=== PATIENT | female | born 1985 | race Caucasian/White ===

== ENCOUNTER 2021-05-03 15:57 | Inpatient (IN) | payer MEDICAID, SELFPAY ==
[2021-05-03] VITALS (8 sets, daily range): BP systolic 101–137; BP diastolic 62–89; PULSE 68–120; RESP 12–18; TEMP 36.7–37.3; O2SAT 93–99; BMI 29.3
--- NOTE | 2021-05-03 16:01 | PCS.PANDOC ---
PANDEMIC DOCUMENTATION INITIATED: Date: 04/14/2021 Time: 190
--- NOTE | 2021-05-03 16:22 | PCM.HP.STD ---
Documented by User: Alessandro NEGRON 05/03/21 16:41 HPI - General General Date of Admission: 05/03/21 HPI Narrative TRENTON BESS is a 36-year-old female who is a direct admission from [facility] emergency department for evaluation and management of left-sided infected kidney stone. Patient reports that this morning with excruciating left-sided flank pain. Patient reports that the pain was excruciating consistent and she would rated about a 10. Patient denies any alleviating or aggravating factors. Patient does endorse some nausea and vomiting since receiving morphine, however reports the symptoms were not present prior to that. Patient denies any other symptoms to include fever, chills, hematuria or pain with urination. Patient denies any prior history of kidney stone or kidney problems. No diagnostic data currently available as information is in route from initial care facility. [facility] Medical History Anxiety Cholecystectomy planned GERD (gastroesophageal reflux disease) Hypothyroidism Home Medications cyanocobalamin (vitamin B-12) 1,000 mcg PO DAILY 05/03/21 [History Last Taken 05/02/21] levothyroxine 175 mcg PO DAILY 05/03/21 [History Last Taken 05/02/21] pantoprazole 40 mg PO DAILY 05/03/21 [History Last Taken 05/02/21] paroxetine HCl 40 mg PO DAILY 05/03/21 [History Last Taken 05/02/21] Allergy/AdvReac Type Severity Reaction Status Date / Time Sulfa (Sulfonamide Allergy Hives Verified 05/03/21 16:50 Antibiotics) Family History Mother Hypothyroidism Hypertension Surgical History History of cholecystectomy History of pancreatic surgery Previous back surgery Previous section Social History (Updated 05/03/21 @ 16:31 by Alessandro NEGRON) household members: spouse and children housing: house Smoking Status: Current every day smoker tobacco type: cigarettes Smoking packs per day: 0.5 Smoking cigarettes per day: 10.0 Years smoked: 10 Smoking pack-years: 5.00 Tobacco: How many years used: 10 quit status: considering quitting alcohol intake: never substance use type: does not use do you feel safe at home: Yes ROS Constitutional Constitutional: Reports malaise and weakness; Denies anorexia, change in weight, chills, fatigue, fever(s), night sweats or other Eyes Eyes: Denies blurry vision, change in eye color, change in vision, discharge from eye(s), double vision, erythema, eye pain, loss of vision or other ENT HEENT: Denies abnormal hearing, dysphagia, ear pain, epistaxis, headache(s), hearing loss, nasal congestion, nasal discharge, post nasal drip, sinus pressure, sore throat or other Cardiovascular Cardiovascular: Denies chest pain, claudication, dyspnea on exertion, edema, lightheadedness, orthopnea, palpitations, paroxysmal nocturnal dyspnea, rapid heart rate, syncope or other Respiratory/Chest Respiratory/Chest: Denies cough, dyspnea, excessive phlegm production, hemoptysis, productive cough, shortness of breath at rest, shortness of breath with exertion, wheezing or other Gastrointestinal Gastrointestinal: Denies abdominal pain, coffee ground emesis, constipation, diarrhea, dyspepsia, hematemesis, hematochezia, loose stools, melena, nausea, vomiting or other Genitourinary Genitourinary: Denies burning urination, difficulty urinating, dysuria, hematuria, nocturia, urinary frequency, urinary hesitancy, urinary incontinence, urinary urgency or other Musculoskeletal Musculoskeletal: Denies arthralgias, back pain, joint pain, joint stiffness, joint swelling, myalgias, neck pain or other Neurologic Neurologic: Denies abnormal gait, abnormal speech, confusion, disequilibrium, dizziness, focal weakness, headache(s), numbness, paresthesias, seizure-like activity, seizures, syncope, tingling, tremor(s) or other Psychiatric Psychiatric: Denies anxiety, depression, homicidal ideation, suicidal ideation or other Endocrine Endocrinology: Denies change in body appearance, cold intolerance, excessive sweating, heat intolerance, polydipsia, polyuria or other Hematologic/Lymphatic Hematologic/Lymphatic: Denies anemia, easy bleeding, easy bruising, lymphadenopathy or other Allergic/Immunologic Allergic/Immunologic: Denies rhinitis, hives, eczemia, asthma or other Physical Exam Const alert and oriented x3 General Appearance: cooperative HEENT normocephalic, head/scalp atraumatic and hearing grossly normal bilaterally Eyes PERRL, EOMs intact bilaterally and conjunctivae normal Neck no lymphadenopathy, supple and no JVD Resp normal respiratory effort, no retractions, no use of accessory muscles and clear to auscultation bilaterally Cardio regular rate, regular rhythm, no murmurs and no JVD GI normal to inspection, nondistended, normoactive bowel sounds and soft to palpation Palpation: tender LLQ Extremity normal to inspection, full ROM and no clubbing, cyanosis or edema Skin no rashes or lesions noted, no wounds, skin turgor normal and no jaundice Neuro CN's II-XII intact bilaterally Psych affect normal Results Lab / Micro Data Result Diagrams: 05/04/21 12:30 05/04/21 05:35 Assessment & Plan Assessment/Plan (1) Left nephrolithiasis: PLAN: Patient is a 36-year-old female who is a direct admission from [facility] department for evaluation and management of infected left kidney stone. 1) infected left kidney stone Patient reports a 1 day history of left lower quadrant and left-sided flank pain. Patient was initially evaluated at [facility] emergency department, and subsequently transferred to [facility] for further urological evaluation and management. Associated diagnostic data not currently available from initial emergency department. Plan; admit to PCU for cardiac monitoring, urology consult ordered, Tylenol as needed, morphine as needed, Zofran as needed, CBC and BMP in a.m., UA ordered. CODE STATUS: Full code Vaccination status: Patient not currently vaccinated for COVID-19. Denies any sick contacts or symptoms associated with viral infection. DVT prophylaxis - low risk, not indicated Patient seen by Alessandro Gil PA-C, under the supervision of Dr. Ellsworth. Documented by User: Dr. Vince Ellsworth MD 05/04/21 13:23 HPI - General General Date of Admission: 05/03/21 [facility] Medical History Anxiety Cholecystectomy planned GERD (gastroesophageal reflux disease) Hypothyroidism Home Medications cyanocobalamin (vitamin B-12) 1,000 mcg PO DAILY 05/03/21 [History Last Taken 05/02/21] levothyroxine 175 mcg PO DAILY 05/03/21 [History Last Taken 05/02/21] pantoprazole 40 mg PO DAILY 05/03/21 [History Last Taken 05/02/21] paroxetine HCl 40 mg PO DAILY 05/03/21 [History Last Taken 05/02/21] Allergy/AdvReac Type Severity Reaction Status Date / Time Sulfa (Sulfonamide Allergy Hives Verified 05/03/21 16:50 Antibiotics) Family History Mother Hypothyroidism Hypertension Surgical History History of cholecystectomy History of pancreatic surgery Previous back surgery Previous section Social History (Updated 05/03/21 @ 16:31 by Alessandro NEGRON) household members: spouse and children housing: house Smoking Status: Current every day smoker tobacco type: cigarettes Smoking packs per day: 0.5 Smoking cigarettes per day: 10.0 Years smoked: 10 Smoking pack-years: 5.00 Tobacco: How many years used: 10 quit status: considering quitting alcohol intake: never substance use type: does not use do you feel safe at home: Yes Results Lab / Micro Data Result Diagrams: 05/04/21 12:30 05/04/21 05:35 Charges/Coding Addendum Addendum: Dr. Ellsworth: I personally reviewed the chart and examined the patient, and agree with the above findings. 36-year-old female presented to an outside hospital with left flank pain. She was found to have 1.1 cm kidney stone at the left UPJ. She was transferred to this hospital for intervention. She did have an elevated white count and UA was obtained at the outside hospital which did show possible contamination so she was given a dose of Rocephin at the hospital. We will continue with Rocephin here and obtain a urine culture as well. Of note on repeat CBC here her hemoglobin was 6.8. She was transfused 1 unit and will recheck in the morning. Currently pain is well controlled, will continue with morphine for now kidney function did jump to 1.27 therefore we will hold off with Toradol at this time and monitor for improvement. Visit Charges Inpatient E&M: 01612 Init Hosp L3
[2021-05-03 16:42] LABS: Hematocrit 25.3 % (37-47); Hemoglobin 6.8 g/dL (12.0-15.0); Mean Corp Hgb Conc 26.9 g/dL (32-36); Mean Corpuscular Hgb 17.3 pg (27.0-32.0); Mean Corpuscular Volume 64.2 fL (81-99); POSITIVE MORPHOLOGY YES; Platelet Count 199 K/mm3 (150-450); RBC Distribution Width CV 20.5 % (11.6-14.6); RBC Distribution Width SD 46.5 fl (35.1-43.9); Red Blood Count 3.94 M/mm3 (4.2-5.4); White Blood Count 21.4 K/mm3 (4.4-11.0)
[2021-05-03 16:44] LABS: Scan Indicated on CBC? Y/N YES- FLAGS NOTED
[2021-05-03 16:54] LABS: Anion Gap 5 (5-15); BUN 8 mg/dL (7-18); BUN/Creat Ratio 6.5 RATIO (10-20); Calcium,Total 8.1 mg/dL (8.5-10.1); Chloride 107 mmol/L (98-107); Creatinine, Serum 1.24 mg/dL (0.55-1.02); EST Glomerular Filtration Rate 51 mL/min (>60); Est Glom Filt Rate - Afr Amer 62 mL/min (>60); Estimated Creatinine Clearance 68.75 ml/min; Glucose 102 mg/dL (74-106); Potassium 3.2 mmol/L (3.5-5.1); Sodium Level 138 mmol/L (136-145)
--- NOTE | 2021-05-03 16:59 | PCM.PN.BLA ---
Progress Note admitted for obstructing stone left side. plan to take to surgery tomorrow for intervention, possible laser if safe and stent npo at midnight, obtain consent.
[2021-05-03 17:03] LABS: Bacteria 0 SEEN /hpf (None Seen); Mucous, Urine 0 SEEN /hpf (<or=2+); Red Blood Cells-Urine 0 SEEN /hpf (0-5)
[2021-05-03 17:05] LABS: Color, Urine Yellow (Yellow); Glucose, Dipstick Normal (Normal); Ketone-Dipstick Negative (Negative); Leukocyte Esterase-Dipstick 25 /ul (Negative); Nitrite-Dipstick Negative (Negative); Occult Blood-Urine Negative /ul (Negative); Protein-Dipstick 15 mg/dl (Negative); Specific Gravity, Urine 1.005 (1.002-1.030); Urine Bilirubin Dipstick Negative (Negative); Urine Clarity Clear (Clear); Urine Urobilinogen Normal (Normal); Urine pH 6.5 (5.0 - 8.0)
[2021-05-03 17:12] LABS: Differential Comment SCANNED
[2021-05-03 17:13] LABS: Squamous Epithelial Cells - UA 0-5 SEEN /hpf (5-10); White Blood Cells 5-10 SEEN /hpf (0-5)
[2021-05-03] MEDS: 0.9% Normal Saline 1,000 ML 100 ML IV (17:26)
[2021-05-03] MEDS: Ondansetron 4 MG/2 ML Vial IV (17:27)
[2021-05-03] MEDS: Morphine 2 MG/ML Syringe IV (17:28)
[2021-05-03] MEDS: proCHLORPERazine 10 MG/2 ML Vial 5 MG IV (22:34)
[2021-05-03] MEDS: Ketorolac 30 MG/ML Syringe IV (23:09)
[2021-05-04] VITALS (20 sets, daily range): BP systolic 91–116; BP diastolic 60–84; PULSE 72–110; RESP 12–20; TEMP 36.1–37.1; O2SAT 88–99
[2021-05-04] MEDS: 0.9% Normal Saline 1,000 ML 100 ML IV ×2 (06:12→11:45)
[2021-05-04 06:38] LABS: Hemoglobin 7.3 g/dL (12.0-15.0); Mean Corp Hgb Conc 28.1 g/dL (32-36); Mean Corpuscular Hgb 18.6 pg (27.0-32.0); Mean Corpuscular Volume 66.3 fL (81-99); POSITIVE COUNT YES; POSITIVE DIFFERENTIAL YES; POSITIVE MORPHOLOGY YES; Platelet Count 160 K/mm3 (150-450); RBC Distribution Width CV 22.5 % (11.6-14.6); RBC Distribution Width SD 52.7 fl (35.1-43.9); Red Blood Count 3.92 M/mm3 (4.2-5.4)
[2021-05-04 06:45] LABS: Differential Indicated MANUAL DIFF; White Blood Count 32.3 K/mm3 (4.4-11.0)
[2021-05-04 07:10] LABS: Anion Gap 9 (5-15); BUN 15 mg/dL (7-18); BUN/Creat Ratio 11.8 RATIO (10-20); Calcium,Total 7.8 mg/dL (8.5-10.1); Chloride 107 mmol/L (98-107); Creatinine, Serum 1.27 mg/dL (0.55-1.02); EST Glomerular Filtration Rate 50 mL/min (>60); Est Glom Filt Rate - Afr Amer 61 mL/min (>60); Estimated Creatinine Clearance 67.13 ml/min; Glucose 87 mg/dL (74-106); Neutrophil-Band 15 % (0-5); Neutrophil-Segmented 75 % (47-70); Potassium 3.1 mmol/L (3.5-5.1); Sodium Level 139 mmol/L (136-145); Total Cells Counted 100 (MANUAL DIFF)
[2021-05-04 07:11] LABS: Lymphocyte 1 % (19-41); Metamyelocyte 4 % (0-1); Monocyte 5 % (0-10)
[2021-05-04 07:15] LABS: Absolute Lymphocyte Count 0.32 X10^3/uL (0.83-4.51); Absolute Neutrophil Count 30.4 X10^3/uL (2.0-7.7); Lymphocyte # 0.32 X10^3/ul (0.83-4.51)
[2021-05-04 07:17] LABS: Differential Comment SCANNED
[2021-05-04 07:19] LABS: Anisocytosis 2+; Microcytosis 2+; Platelet Estimate ADEQUATE (ADEQ)
[2021-05-04] MEDS: Ceftriaxone 1 GM/50 ML BAG IV (09:20)
[2021-05-04] MEDS: Levothyroxine 175 MCG Tablet PO (09:23)
[2021-05-04] MEDS: Pantoprazole Sodium 40 MG Tablet PO (09:23)
[2021-05-04] MEDS: Lubricating Jelly 60 GM Tube 30 GM TOPICAL (10:35)
[2021-05-04] MEDS: Lidocaine Jelly 2% 20 ML Syringe (URO-JET) 20 APPLIC (10:35)
--- NOTE | 2021-05-04 10:44 | PCM.OPRPT ---
Problems Associated Problem List Diagnoses (1) Left nephrolithiasis: Report of Operation Date of Procedure: 05/04/21 Pre-Operative Diagnosis: Left obstructing ureteral calculi radiolucent, elevated white blood count infected urine Post-Operative Diagnosis: The same Surgery/Procedure Performed:: Cystoscopy left retrograde pyelogram, interpretation of fluoroscopic images and left stent placement Description of Surgical Findings:: Indication this is a 36-year-old female who was transferred from [facility] she presented with a stone in the proximal left ureter with hydronephrosis and obstruction she had an elevated white count of 20,000 on admission and 34,000 this morning so at this point I do not think it safe to proceed with laser lithotripsy I explained this to the patient per in the preoperative area. Working to take her to surgery today performed retrograde pyelogram to evaluate the location of the stone, and then place a stent this is an after hours emergency case the patient has a high white blood count of 34,000 and very low blood pressure but still no jim signs of sepsis but very concerning how high her blood pressure is also she is found to have severe anemia on admission to the hospital and will have to have a work-up by hospitalist for anemia. She was consented for the stent placement today we talked about the risk of the procedure bleeding infection sepsis and she understands she may need more than 1 procedure to take care of the stone. 36-year-old female taken back to the operating room after induction of anesthesia by Dr. Atkins she was placed in dorsolithotomy position, the urethra and vaginal area were prepped and draped in usual sterile fashion, I went into the bladder with a 21 [place] rigid cystourethroscope and the base of the bladder had some dark-colored urine in it there were no tumors or stones seen within the bladder the bladder was normal. I then used a 5 [place] open-ended ureteral catheter with a 0.038 Glidewire and cannulated the left ureteral orifice advanced a wire up into the kidney there was still contrast in the kidney from the prior CT scan I only had to use a little bit of contrast in the retrograde. The stone appeared to be radiolucent as you could see the stone defect within the pyelogram. I then advanced a wire up into the kidney over the wire I advanced a 5 [place] open ended catheter obtain urine from the kidney this was sent off as a culture. I then backloaded the ureteral catheter over the 0.038 Glidewire and then over the Glidewire advanced a 6 [place] by 26 cm stent. Once stent was a good position up in the kidney I pulled the wire in the kidney stent part coiled in the kidney, and then the coiled in the bladder and visualization. I then drained the bladder I then trimmed the string of the stent to prevent accidental extraction. Patient's anesthetic was reversed and will monitor while she is in the hospital I could potentially treat her this Wednesday with shockwave lithotripsy if she stabilizes. Surgeon: VERONICA Type of Anesthesia: General Drains: STENT 6 FR X 26CM Admit VTE Documentation VTE Present on Admission: No VTE Mechan Device Prophylaxis: SCD's
[2021-05-04 11:10] LABS: Ferritin 31 ng/mL (8-252); Iron 10 ug/dL (50-170); Iron Binding Capacity,Total 416 ug/dL (250-450); Magnesium 1.1 mg/dL (1.6-2.6)
[2021-05-04] MEDS: Paroxetine 20 MG Tablet 40 MG PO (11:46)
[2021-05-04] MEDS: Potassium Chloride Oral Tablet 20 MEQ 40 MEQ PO (11:46)
[2021-05-04] MEDS: Cyanocobalamin 500 MCG Tablet 1000 MCG PO (11:47)
[2021-05-04 12:37] LABS: Absolute Lymphocyte Count 1.67 X10^3/uL (0.83-4.51); Absolute Neutrophil Count 26.9 X10^3/uL (2.0-7.7); Basophil# 0.05 X10^3/uL; Basophil% 0.2 % (0-1); Eosinophil# 0.03 X10^3/uL; Eosinophils% 0.1 % (0-5); Hematocrit 26.2 % (37-47); Hemoglobin 7.1 g/dL (12.0-15.0); Lymphocyte # 1.67 X10^3/ul (0.83-4.51); Lymphocyte % 5.4 % (19-41); Mean Corp Hgb Conc 27.1 g/dL (32-36); Mean Corpuscular Volume 66.3 fL (81-99); Monocyte# 1.05 X10^3/uL; Monocyte% 3.4 % (0-10); NRBC Flagged by Analyzer 0 % (0-5); Neutrophil # 26.89 X10^3/uL (2.7-7.7); Neutrophil % 87.7 % (47-70); POSITIVE COUNT YES; POSITIVE DIFFERENTIAL YES; POSITIVE MORPHOLOGY YES; Platelet Count 151 K/mm3 (150-450); RBC Distribution Width CV 22.4 % (11.6-14.6); Red Blood Count 3.95 M/mm3 (4.2-5.4)
[2021-05-04 12:42] LABS: Differential Indicated SCAN CRITERIA MET
[2021-05-04 12:44] LABS: White Blood Count 30.7 K/mm3 (4.4-11.0)
--- NOTE | 2021-05-04 13:04 | PCM.PN.HOSP ---
Documented by User: Alessandro NEGRON 05/04/21 13:16 Subjective Subjective Patient is a 36-year-old female comfortably resting in bed, alert and orient x3. Patient reports that her left abdominal and flank plain is currently controlled, denies development of any new symptoms in the past 24 hours. Denies chest pain, shortness of breath, palpitations, hemoptysis, sputum production, fever, chills, N/V/D. Objective Data Objective Data Vital Signs: Vital Signs Temp Pulse Resp BP Pulse Ox 97.2 F L 88 16 101/67 96 05/04/21 11:40 05/04/21 11:40 05/04/21 11:40 05/04/21 11:40 05/04/21 11:40 Oxygen Flow Rate (L/min) 2 Oxygen Delivery Method Room Air Weight: 213 lb 6.519 oz Body Mass Index (BMI) 29.3 Intake & Output: Intake and Output for Last 24 Hours 05/02/21 05/03/21 05/04/21 23:59 23:59 23:59 Intake Total 1165 / 1165 1010.00 / 1010.00 Balance 1165 / 1165 1010.00 / 1010.00 Lab / Micro Data Result Diagrams: 05/04/21 12:30 05/04/21 05:35 Labs: Laboratory Results - last 24 hr 05/03/21 16:30: WBC 21.4 H, RBC 3.94 L, Hgb 6.8 L, Hct 25.3 L, MCV 64.2 L, MCH 17.3 L, MCHC 26.9 L, RDW Std Deviation 46.5 H, RDW Coeff of Eulalio 20.5 H, Plt Count 199, MPV TNP, Differential Comment SCANNED 05/03/21 16:30: Sodium 138, Potassium 3.2 L, Chloride 107, Carbon Dioxide 26.0, Anion Gap 5, BUN 8, Creatinine 1.24 H, Estim Creat Clear Calc 68.75, Est GFR (MDRD) Af Amer 62, Est GFR (MDRD) Non-Af 51 L, BUN/Creatinine Ratio 6.5 L, Glucose 102, Calcium 8.1 L 05/03/21 16:50: Urine Color Yellow, Urine Clarity Clear, Urine pH 6.5, Ur Specific [place] 1.005, Urine Protein 15 H, Urine Glucose (UA) Normal, Urine Ketones Negative, Urine Occult Blood Negative, Urine Nitrite Negative, Urine Bilirubin Negative, Urine Urobilinogen Normal, Ur Leukocyte Esterase 25 H, Urine RBC 0 SEEN, Urine WBC 5-10 SEEN, Ur Squamous Epith Cells 0-5 SEEN, Urine Bacteria 0 SEEN, Urine Mucus 0 SEEN 05/03/21 18:15: Blood Type A NEGATIVE, Antibody Screen NEGATIVE, Crossmatch See Detail 05/04/21 05:35: WBC 32.3 H*, RBC 3.92 L, Hgb 7.3 L, Hct 26.0 L, MCV 66.3 L, MCH 18.6 L, MCHC 28.1 L, RDW Std Deviation 52.7 H, RDW Coeff of Eulalio 22.5 H, Plt Count 160, Neut % (Auto) Not Reportable, Absolute Neuts (auto) 30.4 H, Absolute Lymphs (auto) 0.32 L, Total Counted 100, Neutrophils % (Manual) 75 H, Band Neutrophils % 15 H, Lymphocytes % (Manual) 1 L, Monocytes % (Manual) 5, Metamyelocytes % 4 H, Differential Comment SCANNED, Diff Path Review May foll, Platelet Estimate ADEQUATE, Anisocytosis 2+, Microcytosis 2+ 05/04/21 05:35: Sodium 139, Potassium 3.1 L, Chloride 107, Carbon Dioxide 23.0, Anion Gap 9, BUN 15, Creatinine 1.27 H, Estim Creat Clear Calc 67.13, Est GFR (MDRD) Af Amer 61, Est GFR (MDRD) Non-Af 50 L, BUN/Creatinine Ratio 11.8, Glucose 87, Calcium 7.8 L 05/04/21 05:35: Magnesium 1.1 L, Iron 10 L, TIBC 416, Ferritin 31 05/04/21 12:30: WBC 30.7 H*, RBC 3.95 L, Hgb 7.1 L, Hct 26.2 L, MCV 66.3 L, MCH 18.0 L, MCHC 27.1 L, RDW Std Deviation 53.0 H, RDW Coeff of Eulalio 22.4 H, Plt Count 151, Immature Gran % (Auto) 3.200 H, Neut % (Auto) 87.7 H, Lymph % (Auto) 5.4 L, [place] % (Auto) 3.4, Eos % (Auto) 0.1, Baso % (Auto) 0.2, Absolute Neuts (auto) 26.9 H, Absolute Lymphs (auto) 1.67, Nucleated RBC % 0 Micro: Microbiology 05/04/21 09:50 Nasal Secretion SARS-CoV-2 Antigen (Rapid) - Final Physical Exam Const alert, oriented x3 and no apparent distress HEENT head/scalp atraumatic and moist oral mucous membranes Head and Scalp: normocephalic Eyes EOMs intact bilaterally and conjunctivae normal Neck no lymphadenopathy, supple and no JVD Resp normal respiratory effort, no retractions and no use of accessory muscles Cardio regular rate, regular rhythm, no murmurs and no JVD GI normal to inspection, nondistended, normoactive bowel sounds, soft to palpation and non-tender GI Narrative: Pain to palpation left lower quadrant resolved from admission. Extremity normal to inspection, full ROM and no clubbing, cyanosis or edema Skin no rashes or lesions noted, no wounds, skin turgor normal and no jaundice Neuro CN's II-XII intact bilaterally Psych affect normal Assessment & Plan Assessment/Plan (1) Left nephrolithiasis: PLAN: Day 2 Discharge planning: Patient to discharge home, no home health care needs or additional therapies identified. 1) Infected obstructive left nephrolithiasis Urology consulted, cystoscopy left retrograde pyelogram performed on 05/04/[address] Cid, no complications noted. Vital signs stable and patient is afebrile. CBC does not demonstrate a leukocytosis and WBCs are currently at 30,000. Plan; remain admitted to PCU for telemetry monitoring, continue Rocephin, morphine as needed, Zofran as needed, Tylenol as needed, melatonin as needed, Toradol as needed, Compazine as needed, CBC in a.m. 2) Microcytic anemia Hemoglobin 7.3 on morning of 05/04, 7.1 on reevaluation. Unclear etiology. Plan; transfuse 1 unit of PRBCs, iron studies ordered. 3) hypothyroidism Continue Synthroid. 4) anxiety/depression Continue Paxil. 5) hypokalemia Currently 3.1. Replaced, trend BMP. DVT prophylaxis -low risk, not indicated Patient seen by Alessandro Gil PA-C, under the supervision of Dr. Ellsworth. Documented by User: Dr. Vince Ellsworth MD 05/04/21 13:25 Objective Data Lab / Micro Data Result Diagrams: 05/04/21 12:30 05/04/21 05:35 Charges/Coding Addendum Addendum: Dr. Ellsworth: I personally reviewed the chart and examined the patient, and agree with the above findings. 36-year-old female presented to an outside hospital with left flank pain. She was found to have 1.1 cm kidney stone at the left UPJ. She was transferred to this hospital for intervention. She did have an elevated white count and UA was obtained at the outside hospital which did show possible contamination so she was given a dose of Rocephin at the hospital. We will continue with Rocephin here and obtain a urine culture as well. Of note on repeat CBC here her hemoglobin was 6.8. She was transfused 1 unit and will recheck in the morning. Currently pain is well controlled, will continue with morphine for now kidney function did jump to 1.27 therefore we will hold off with Toradol at this time and monitor for improvement. 05/04/2021: Doing well, seen after surgery today. She had a stent placed but the stone was not removed. We will continue with Rocephin, a second urine culture was taken from urine behind the stone. Hopefully creatinine will improve. Hemoglobin has dropped again to 7.1 this could be dilutional or procedural. She denies any bloody stools. Will obtain iron studies and transfuse another unit today. Given the worsening white count, will broaden her antibiotics from Rocephin to Zosyn. Visit Charges Inpatient E&M: 78478 Subs Hosp L2
[2021-05-04] MEDS: Ondansetron 4 MG/2 ML Vial IV (13:54)
[2021-05-04] MEDS: Ketorolac 30 MG/ML Syringe IV ×2 (13:54→20:56)
[2021-05-04] MEDS: Magnesium Sulfate 4gm/100mL 4 GM/100 ML IV.SOLN. IV (15:15)
[2021-05-04 16:15] LABS: Phosphorus 3.2 mg/dL (2.5-4.9)
[2021-05-04] MEDS: Ferrous Sulfate 325 MG Tablet PO (16:44)
[2021-05-04 23:04] LABS: Hematocrit 27.9 % (37-47); Mean Corpuscular Hgb 19.4 pg (27.0-32.0); Mean Corpuscular Volume 67.6 fL (81-99); Red Blood Count 4.13 M/mm3 (4.2-5.4); White Blood Count 26.4 K/mm3 (4.4-11.0)
[2021-05-04 23:05] LABS: Basophil% 0.2 % (0-1); Differential Indicated SCAN CRITERIA MET; Eosinophils% 0.3 % (0-5); Lymphocyte % 5.8 % (19-41); Mean Corp Hgb Conc 28.7 g/dL (32-36); Neutrophil % 88.7 % (47-70); Platelet Count 116 K/mm3 (150-450); RBC Distribution Width CV 23.9 % (11.6-14.6); RBC Distribution Width SD 57.3 fl (35.1-43.9)
[2021-05-04 23:06] LABS: Absolute Lymphocyte Count 1.53 X10^3/uL (0.83-4.51); Absolute Neutrophil Count 23.4 X10^3/uL (2.0-7.7)
[2021-05-04 23:07] LABS: Anisocytosis 1+; Differential Comment SCANNED
[2021-05-05] VITALS (10 sets, daily range): BP systolic 118–152; BP diastolic 69–101; PULSE 63–85; RESP 14–18; TEMP 36.2–37.1; O2SAT 93–99
[2021-05-05] MEDS: 0.9% Normal Saline 1,000 ML 100 ML IV ×3 (00:34→21:34)
[2021-05-05] MEDS: Levothyroxine 175 MCG Tablet PO (05:00)
[2021-05-05 06:50] LABS: Anion Gap 6 (5-15); BUN 16 mg/dL (7-18); BUN/Creat Ratio 19.9 RATIO (10-20); Calcium,Total 7.7 mg/dL (8.5-10.1); Chloride 109 mmol/L (98-107); EST Glomerular Filtration Rate 85 mL/min (>60); Est Glom Filt Rate - Afr Amer 103 mL/min (>60); Estimated Creatinine Clearance 106.57 ml/min; Glucose 114 mg/dL (74-106); Potassium 3.3 mmol/L (3.5-5.1); Sodium Level 140 mmol/L (136-145)
[2021-05-05] MEDS: Cyanocobalamin 500 MCG Tablet 1000 MCG PO (08:19)
[2021-05-05] MEDS: Pantoprazole Sodium 40 MG Tablet PO (08:20)
[2021-05-05] MEDS: Paroxetine 20 MG Tablet 40 MG PO (08:20)
[2021-05-05] MEDS: Potassium Chloride Oral Tablet 20 MEQ 40 MEQ PO (08:28)
--- NOTE | 2021-05-05 08:48 | PN.URO_ITS ---
Subjective Subjective 36-year-old female who was transferred from outside hospital to [facility] for kidney stone she did have a very high white blood count so initial suspicion was sepsis but she is really not acting septic no fevers no chills she did have obstructing stone and had pain from the stone stent was placed now her pain is resolved but her white blood count is still very high she also came in with a severe anemia I suspect she has some sort of hematological process that is causing her white blood count to be high and her anemia so I am going to put a consult in for her to see hematology while she is in the hospital we will get a KUB today I plan to take her surgery on Wednesday for lithotripsy of the stone. Objective Data Objective Data Vital Signs: Vital Signs Temp Pulse Resp BP Pulse Ox 98.7 F 68 14 137/93 H 96 05/05/21 08:20 05/05/21 08:20 05/05/21 08:20 05/05/21 08:20 05/05/21 08:20 Oxygen Flow Rate (L/min) 2 Oxygen Delivery Method Room Air Weight: 96.8 kg Body Mass Index (BMI) 29.3 Intake & Output: Intake and Output for Last 24 Hours 05/03/21 05/04/21 05/05/21 23:59 23:59 23:59 Intake Total 1165 / 1165 2250.25 / 2490.25 1685.00 / 1685.00 Output Total 550 / 550 Balance 1165 / 1165 2250.25 / 2140.25 1135.00 / 1135.00 Lab / Micro Data Result Diagrams: 05/04/21 Unknown 05/05/21 06:27 Labs: Laboratory Results - last 24 hr 05/03/21 18:15: Blood Type A NEGATIVE, Antibody Screen NEGATIVE, Crossmatch See Detail 05/04/21 05:35: MPV TNP 05/04/21 05:35: Magnesium 1.1 L, Iron 10 L, TIBC 416, Ferritin 31 05/04/21 05:35: Phosphorus 3.2 05/04/21 12:30: WBC 30.7 H*, RBC 3.95 L, Hgb 7.1 L, Hct 26.2 L, MCV 66.3 L, MCH 18.0 L, MCHC 27.1 L, RDW Std Deviation 53.0 H, RDW Coeff of Eulalio 22.4 H, Plt Count 151, Immature Gran % (Auto) 3.200 H, Neut % (Auto) 87.7 H, Lymph % (Auto) 5.4 L, [place] % (Auto) 3.4, Eos % (Auto) 0.1, Baso % (Auto) 0.2, Absolute Neuts (auto) 26.9 H, Absolute Lymphs (auto) 1.67, Nucleated RBC % 0, Differential Comment COMMENT, Diff Path Review December05/04/21 : WBC 26.4 H, RBC 4.13 L, Hgb 8.0 L, Hct 27.9 L, MCV 67.6 L, MCH 19.4 L , MCHC 28.7 L D, RDW Std Deviation 57.3 H, RDW Coeff of Eulalio 23.9 H, Plt Count 116 L, MPV TNP, Immature Gran % (Auto) 2.000 H, Neut % (Auto) 88.7 H, Lymph % (Auto) 5.8 L, [place] % (Auto) 3.0, Eos % (Auto) 0.3, Baso % (Auto) 0.2, Absolute Neuts (auto) 23.4 H, Absolute Lymphs (auto) 1.53, Differential Comment SCANNED, Anisocytosis 1+ 05/05/21 06:27: Sodium 140, Potassium 3.3 L, Chloride 109 H, Carbon Dioxide 25.0, Anion Gap 6, BUN 16, Creatinine 0.80, Estim Creat Clear Calc 106.57, Est GFR (MDRD) Af Amer 103, Est GFR (MDRD) Non-Af 85, BUN/Creatinine Ratio 19.9, Glucose 114 H, Calcium 7.7 L Micro: Microbiology 05/04/21 09:50 Nasal Secretion SARS-CoV-2 Antigen (Rapid) - Final Physical Exam Const alert and oriented x3 General Appearance: cooperative HEENT normocephalic, head/scalp atraumatic, EAC's normal and TM's normal bilaterally Eyes PERRL and EOMs intact bilaterally Pupil: sluggish Neck no lymphadenopathy, supple and no JVD General: trachea midline Lymph Lymphatic: no lymphadenopathy noted, lymphedema and lymphadenopathy Resp normal respiratory effort, normal air movement and clear to auscultation bilaterally Cardio regular rate, regular rhythm and peripheral pulses 2+ throughout GI soft to palpation, non-tender and non-distended Extremity normal capillary refill and no clubbing, cyanosis or edema General Extremity: no tenderness to palpation of joints or extremities Skin no rashes or lesions noted General Skin Exam: turgor normal Lesions: no lesions Rashes: no rashes Neuro CN's II-XII intact bilaterally Speech: speech normal Motor Exam: strength 5/5 throughout; Negative for general weakness Psych thought process normal, cooperative and affect normal Appearance: appropriate Assessment & Plan Assessment/Plan (1) Left nephrolithiasis: PLAN: 36-year-old female with obstructing stone in the left side status post stent however she did present with severe anemia and elevated white blood count. Consult hematology oncology I suspect some sort of hematological process is causing her anemia and her leukocytosis I do not think she is septic I do not think the leukocytosis is a result of the kidney stone. We will get a KUB today for planning and will plan to do lithotripsy on Wednesday and for the time being we will consult oncology hematology for evaluation.
--- NOTE | 2021-05-05 09:40 | RAD_ITS ---
STUDY: X-RAY - ABDOMEN/PELVIS REASON FOR EXAM: Female, 36 years old. Kidney stones. TECHNIQUE: Single AP view of the abdomen / pelvis. COMPARISON: None. FINDINGS: Left ureteral stent. 4 mm in diameter calcification projected over the upper pole of the left kidney. Surgical clips in the right side of the abdomen. RAD/Abdomen Single View IMPRESSION: Left ureteral stent. 4 mm in diameter calcification projected over the upper pole of the left kidney. No acute finding. Electronically Signed: Dickson Montanez MD at 11:43 EDT , Service support ,
[2021-05-05 09:45] LABS: Magnesium 2.5 mg/dL (1.6-2.6)
[2021-05-05] MEDS: Ketorolac 30 MG/ML Syringe IV ×2 (10:01→17:21)
--- NOTE | 2021-05-05 11:50 | PCM.PN.HOSP ---
Documented by User: Suzie Fam NP, CONTENT MANAGEMENT CONSULTANT-C 05/05/21 14:34 Subjective Subjective Patient seen and examined. Denies flank, pelvic pain. Denies fever, chills. Denies nausea, vomiting. Patient states she has felt significantly fatigued for some time now and mention to her primary care provider however states she has not evaluated for anemia to her knowledge. She states her thyroid was checked. She denies blood in stool, dark stools. Objective Data Objective Data Vital Signs: Vital Signs Temp Pulse Resp BP Pulse Ox 98.7 F 68 14 137/93 H 96 05/05/21 08:20 05/05/21 08:20 05/05/21 08:20 05/05/21 08:20 05/05/21 08:20 Oxygen Flow Rate (L/min) 2 Oxygen Delivery Method Room Air Weight: 213 lb 6.519 oz Body Mass Index (BMI) 29.3 Intake & Output: Intake and Output for Last 24 Hours 05/03/21 05/04/21 05/05/21 23:59 23:59 23:59 Intake Total 1165 / 1165 2250.25 / 2490.25 1735.00 / 1735.00 Output Total 550 / 550 Balance 1165 / 1165 2250.25 / 2140.25 1185.00 / 1185.00 Lab / Micro Data Result Diagrams: 05/04/21 Unknown 05/05/21 06:27 Labs: Laboratory Results - last 24 hr 05/03/21 18:15: Blood Type A NEGATIVE, Antibody Screen NEGATIVE, Crossmatch See Detail 05/04/21 05:35: MPV TNP 05/04/21 05:35: Phosphorus 3.2 05/04/21 12:30: WBC 30.7 H*, RBC 3.95 L, Hgb 7.1 L, Hct 26.2 L, MCV 66.3 L, MCH 18.0 L, MCHC 27.1 L, RDW Std Deviation 53.0 H, RDW Coeff of Eulalio 22.4 H, Plt Count 151, Immature Gran % (Auto) 3.200 H, Neut % (Auto) 87.7 H, Lymph % (Auto) 5.4 L, [place] % (Auto) 3.4, Eos % (Auto) 0.1, Baso % (Auto) 0.2, Absolute Neuts (auto) 26.9 H, Absolute Lymphs (auto) 1.67, Nucleated RBC % 0, Differential Comment COMMENT, Diff Path Review December05/04/21 : WBC 26.4 H, RBC 4.13 L, Hgb 8.0 L, Hct 27.9 L, MCV 67.6 L, MCH 19.4 L, MCHC 28.7 L D, RDW Std Deviation 57.3 H, RDW Coeff of Eulalio 23.9 H, Plt Count 116 L, MPV TNP, Immature Gran % (Auto) 2.000 H, Neut % (Auto) 88.7 H, Lymph % (Auto) 5.8 L, [place] % (Auto) 3.0, Eos % (Auto) 0.3, Baso % (Auto) 0.2, Absolute Neuts (auto) 23.4 H, Absolute Lymphs (auto) 1.53, Differential Comment SCANNED, Anisocytosis 1+ 05/05/21 06:27: Sodium 140, Potassium 3.3 L, Chloride 109 H, Carbon Dioxide 25.0, Anion Gap 6, BUN 16, Creatinine 0.80, Estim Creat Clear Calc 106.57, Est GFR (MDRD) Af Amer 103, Est GFR (MDRD) Non-Af 85, BUN/Creatinine Ratio 19.9, Glucose 114 H, Calcium 7.7 L 05/05/21 06:27: Magnesium 2.5 Micro: Microbiology 05/03/21 16:50 Urine, Clean Catch Urine Culture - Final Mixed Gram Positive Organisms 05/04/21 09:50 Nasal Secretion SARS-CoV-2 Antigen (Rapid) - Final Radiography Diagnostic Testing: Radiology Impression KUB X-Ray 05/05/21 09:40 IMPRESSION: Left ureteral stent. 4 mm in diameter calcification projected over the upper pole of the left kidney. No acute finding. Electronically Signed: Dickson Montanez MD at 11:43 EDT , Service support , Physical Exam Const alert, oriented x3 and no apparent distress Constitutional Narrative: Pale appearing Orientation / Consciousness: awake, oriented to person, oriented to place and oriented to time HEENT normocephalic and moist oral mucous membranes Eyes PERRL, EOMs intact bilaterally and conjunctivae normal Neck no lymphadenopathy Resp normal respiratory effort and clear to auscultation bilaterally Cardio regular rate, regular rhythm and no murmurs Peripheral Pulses: pulses 2+ throughout GI normal to inspection, nondistended, normoactive bowel sounds, non-tender and non-distended Extremity normal to inspection Skin no rashes or lesions noted Lesions: no lesions Rashes: no rashes Trauma: no lacerations or abrasions Neuro CN's II-XII intact bilaterally, no focal motor deficits, no sensory deficits noted and deep tendon reflexes 2+ bilaterally Psych mental status grossly normal and affect normal Assessment & Plan Assessment/Plan (1) Left nephrolithiasis: (2) Anemia: PLAN: 1. Infected left nephrolithiasis with obstruction-urology consulted. Underwent cystoscopy left retrograde pyelogram and left stent placement 05/04/2021. Plan for lithotripsy 05/07/2021. IV Zosyn. Urine culture pending. IV fluids. As needed pain regimen. 2. Acute microcytic anemia, iron deficiency-hemoglobin 6.8 on admission. Status post 2 units PRBC. IV iron x3 doses. Then continue oral iron segmentation. Trend CBC. Total iron 10, TIBC high end of normal. Consistent with iron deficiency however will need to rule out other etiology given significantly anemic. Check stool for occult blood. Continue daily PPI. 3. Leukocytosis-afebrile, no other sirs criteria. WBC trending down. Hematology consulted per urology. 4. Hypokalemia/hypomagnesia-replace per protocol, trend BMP. 5. Hypothyroidism-on Synthroid. Check TSH. 6. Anxiety/depression-on Paxil. DVT prophylaxis- SCDs This patient was seen by VITO Nicole under the supervision of Dr. Giles. Documented by User: Dr. Saloni Giles MD 05/05/21 14:35 Objective Data Lab / Micro Data Result Diagrams: 05/04/21 Unknown 05/05/21 06:27 Charges/Coding Addendum Addendum: Patient seen by Suzie PADRON under my supervision Patient seen and examined. She had no complaints this morning and felt well. She denied having any flank pain and review of systems otherwise negative. She has remained hemodynamically stable. O/E: Const alert, oriented x3 and no apparent distress Constitutional Narrative: Pale appearing Orientation / Consciousness: awake, oriented to person, oriented to place and oriented to time HEENT normocephalic and moist oral mucous membranes Eyes PERRL, EOMs intact bilaterally and conjunctivae normal Neck no lymphadenopathy Resp normal respiratory effort and clear to auscultation bilaterally Cardio regular rate, regular rhythm and no murmurs Peripheral Pulses: pulses 2+ throughout GI normal to inspection, nondistended, normoactive bowel sounds, non-tender and non-distended Extremity normal to inspection Skin no rashes or lesions noted Lesions: no lesions Rashes: no rashes Trauma: no lacerations or abrasions Neuro CN's II-XII intact bilaterally, no focal motor deficits, no sensory deficits noted and deep tendon reflexes 2+ bilaterally Psych mental status grossly normal and affect normal Patient had a left kidney stent placed yesterday after she had cystoscopy with left retrograde pyelogram. She is to have lithotripsy tomorrow 05/07/2021. She is currently on IV Zosyn. Her white cell count was significantly elevated at 30,000 when she came in as trended down to 26,000 today. Patient however had no fever or any other symptoms of sepsis. She was also anemic with hemoglobin of 6.8 so due to concern about a possible hematologic process going on, hematology was consulted. She is s/p transfusion of 2 units of packed red blood cells. Per hematology, she has a microcytic anemia and also has low ferritin; this could therefore be due to either iron deficiency anemia or a form of thalassemia. Patient will have the need to follow-up with hematology on outpatient basis for possible genetic testing for thalassemia as she has had transfusion done. IV iron also ordered. Stool for occult blood pending. On IV PPI. Patient is also hypokalemic today and these have been replaced per protocol. On SCDs for DVT prophylaxis. No anticoagulation due to anemia. Rest as per VITO Nicole's note which I reviewed and endorsed. Visit Charges Inpatient E&M: 01232 Subs Hosp L3
--- NOTE | 2021-05-05 12:07 | CON.PCM.ON_ITS ---
Assessment & Plan Assessment/Plan (1) Left nephrolithiasis: Status: Acute Code(s): N20.0 - Calculus of kidney (2) Anemia: Status: Acute Code(s): D64.9 - Anemia, unspecified Qualifiers: Anemia type: iron deficiency Iron deficiency anemia type: unspecified iron deficiency Qualified Code(s): D50.9 - Iron deficiency anemia, unspecified Plan: Microcytic anemia with low Iron and low normal Ferritin, Pt has been transfused 2 units PRBC during this admission. She can start oral Iron supplements on discharge. (3) Neutrophilic leukocytosis: Status: Acute Code(s): D72.9 - Disorder of white blood cells, unspecified Plan: Neutrophilia with left shift, differential diagnosis include stress due to kidney stone, CML/MPN. Suggest she continue management of Kidney stone for now. She should follow up as outpatient for further evaluation of Myeloproliferative disease/CML. Will not follow further on this admission. HPI Consult Data Date of Service:: 05/05/21 Attending: Dr. Saloni Giles MD Chief Complaint Chief Complaint: Asked to see Pt for hematologic malignancy. History of Present Illness History of Present Illness: 36-year-old woman was transferred from [facility] with left ureteric stone associated with hydronephrosis, leukocytosis/neutrophilia and anemia. She had left stent placement on 05/04/2021. She has been transfused 2 units of PRBC. Asked to see her for possibility of hematologic malignancy. She does not remember the last time she had CBC done. On 05/04/2021 Iron level is 10 and Ferritin is 31, WBC 26K, Neutrophils 23K. Advanced Directives Power of Die Sizer: No Living Will: No PFSH Medical History (Updated 05/05/21 @ 12:[address] Evaristo Morocho MD) Anxiety Cholecystectomy planned GERD (gastroesophageal reflux disease) Hypothyroidism Home Medications cyanocobalamin (vitamin B-12) 1,000 mcg PO DAILY 05/03/21 [History Last Taken 05/02/21] levothyroxine 175 mcg PO DAILY 05/03/21 [History Last Taken 05/02/21] pantoprazole 40 mg PO DAILY 05/03/21 [History Last Taken 05/02/21] paroxetine HCl 40 mg PO DAILY 05/03/21 [History Last Taken 09/03/21] Allergy/AdvReac Type Severity Reaction Status Date / Time Sulfa (Sulfonamide Allergy Hives Verified 05/03/21 16:50 Antibiotics) Family History Mother Hypothyroidism Hypertension Surgical History History of cholecystectomy History of pancreatic surgery Previous back surgery Previous section Social History (Updated 05/03/21 @ 16:31 by Alessandro NEGRON) household members: spouse and children housing: house Smoking Status: Current every day smoker tobacco type: cigarettes Smoking packs per day: 0.5 Smoking cigarettes per day: 10.0 Years smoked: 10 Smoking pack- years: 5.00 Tobacco: How many years used: 10 quit status: considering quitting alcohol intake: never substance use type: does not use do you feel safe at home: Yes ROS Constitutional Constitutional: Reports fatigue; Denies fever(s) or night sweats ENT HEENT: Denies dysphagia Cardiovascular Cardiovascular: Denies chest pain, clubbing, diaphoresis or dyspnea Respiratory/Chest Respiratory/Chest: Denies chest tightness, cough, dyspnea or dyspnea on exertion Gastrointestinal Gastrointestinal: Denies abdominal pain, anorexia, bloating or change in bowel habits Genitourinary Genitourinary: Denies change in urinary stream, dysuria or flank pain Musculoskeletal Musculoskeletal: Denies abnormal gait or back pain Integumentary Integumentary: Denies alopecia, changing lesions or dry skin Neurologic Neurologic: Denies abnormal speech, behavior changes or confusion Psychiatric Psychiatric: Denies anxiety or depression Endocrine Endocrinology: Denies cold intolerance, flushing or heat intolerance Hematologic/Lymphatic Hematologic/Lymphatic: Denies easy bleeding, easy bruising or lymphadenopathy Physical Exam Const alert and oriented x3 Orientation / Consciousness: oriented to person and oriented to place HEENT normocephalic Eyes Negative for PERRL or conjunctivae normal Neck No no lymphadenopathy Lymph Lymphatic: Negative for no lymphadenopathy noted Chest Negative for inspection of chest normal Resp normal respiratory effort and clear to auscultation bilaterally Cardio regular rhythm, S1 normal heart sound, S2 normal heart sound and no murmurs; Negative for regular rate GI normal to inspection, nondistended, normoactive bowel sounds Extremity normal to inspection and no clubbing, cyanosis or edema Skin no rashes or lesions noted Neuro CN's II-XII intact bilaterally, moves all extremities, no focal motor deficits and no sensory deficits noted Psych mental status grossly normal Vital Signs Temperature 98.7 F 05/05/21 08:20 Temperature Source Oral 05/05/21 08:20 Pulse Rate 68 05/05/21 08:20 Pulse Strength Normal (2+) 05/04/21 10:55 Respiratory Rate 14 05/05/21 08:20 Respiratory Effort Non-Labored 05/05/21 00:44 Respiratory Depth Normal 05/05/21 00:44 Respiratory Pattern Normal 05/05/21 00:44 Blood Pressure 137/93 H 05/05/21 08:20 Blood Pressure Mean 107 05/05/21 08:20 Blood Pressure Source Monitor 05/05/21 08:20 Blood Pressure Position Semi-Fowlers 05/05/21 08:20 Blood Pressure Location Right Arm 05/05/21 08:20 Baseline BP 112/78 05/04/21 11:14 Pulse Ox 96 05/05/21 08:20 Oxygen Delivery Method Room Air 05/05/21 08:20 Oxygen Flow Rate (L/min) 2 05/04/21 17:45 Laboratory Results - last 24 hr 05/03/21 18:15: Blood Type A NEGATIVE, Antibody Screen NEGATIVE, Crossmatch See Detail 05/04/21 05:35: MPV TNP 05/04/21 05:35: Phosphorus 3.2 05/04/21 12:30: WBC 30.7 H*, RBC 3.95 L, Hgb 7.1 L, Hct 26.2 L, MCV 66.3 L, MCH 18.0 L, MCHC 27.1 L, RDW Std Deviation 53.0 H, RDW Coeff of Eulalio 22.4 H, Plt Count 151, Immature Gran % (Auto) 3.200 H, Neut % (Auto) 87.7 H, Lymph % (Auto) 5.4 L, [place] % (Auto) 3.4, Eos % (Auto) 0.1, Baso % (Auto) 0.2, Absolute Neuts (auto) 26.9 H, Absolute Lymphs (auto) 1.67, Nucleated RBC % 0, Differential Comment COMMENT, Diff Path Review December05/04/21 : WBC 26.4 H, RBC 4.13 L, Hgb 8.0 L, Hct 27.9 L, MCV 67.6 L, MCH 19.4 L , MCHC 28.7 L D, RDW Std Deviation 57.3 H, RDW Coeff of Eulalio 23.9 H, Plt Count 116 L, MPV TNP, Immature Gran % (Auto) 2.000 H, Neut % (Auto) 88.7 H, Lymph % (Auto) 5.8 L, [place] % (Auto) 3.0, Eos % (Auto) 0.3, Baso % (Auto) 0.2, Absolute Neuts (auto) 23.4 H, Absolute Lymphs (auto) 1.53, Differential Comment SCANNED, Anisocytosis 1+ 05/05/21 06:27: Sodium 140, Potassium 3.3 L, Chloride 109 H, Carbon Dioxide 25.0, Anion Gap 6, BUN 16, Creatinine 0.80, Estim Creat Clear Calc 106.57, Est GFR (MDRD) Af Amer 103, Est GFR (MDRD) Non-Af 85, BUN/Creatinine Ratio 19.9, Glucose 114 H, Calcium 7.7 L 05/05/21 06:27: Magnesium 2.5 Microbiology 05/03/21 16:50 Urine, Clean Catch Urine Culture - Final Mixed Gram Positive Organisms 05/04/21 09:50 Nasal Secretion SARS-CoV-2 Antigen (Rapid) - Final Diagnostic Data KUB X-Ray 05/05/21 09:40 IMPRESSION: Left ureteral stent. 4 mm in diameter calcification projected over the upper pole of the left kidney. No acute finding. Electronically Signed: Dickson Montanez MD at 11:43 EDT , Service support , Charges/Coding Visit Charges Office Visits / Consults: [id number] IP Consult L3
[2021-05-05 15:19] LABS: T4 Free Direct 1.03 ng/dL (0.76-1.46)
[2021-05-05] MEDS: Ferrous Sulfate 325 MG Tablet PO (16:25)
[2021-05-05] MEDS: Ondansetron 4 MG/2 ML Vial IV (17:18)
[2021-05-05] MEDS: Morphine 2 MG/ML Syringe IV (21:48)
[2021-05-06] VITALS (10 sets, daily range): BP systolic 151–165; BP diastolic 93–99; PULSE 47–58; RESP 16–18; TEMP 36.5–36.6; O2SAT 94–99
[2021-05-06] MEDS: Levothyroxine 175 MCG Tablet PO (05:10)
[2021-05-06] MEDS: Ketorolac 30 MG/ML Syringe IV ×2 (05:14→13:28)
[2021-05-06 05:35] LABS: Absolute Lymphocyte Count 1.62 X10^3/uL (0.83-4.51); Absolute Neutrophil Count 12.1 X10^3/uL (2.0-7.7); Basophil# 0.05 X10^3/uL; Basophil% 0.3 % (0-1); Eosinophil# 0.11 X10^3/uL; Eosinophils% 0.7 % (0-5); Hematocrit 28.2 % (37-47); Hemoglobin 7.8 g/dL (12.0-15.0); Lymphocyte # 1.62 X10^3/ul (0.83-4.51); Mean Corp Hgb Conc 27.7 g/dL (32-36); Mean Corpuscular Hgb 19.3 pg (27.0-32.0); Mean Corpuscular Volume 69.6 fL (81-99); Monocyte# 0.76 X10^3/uL; Monocyte% 5.1 % (0-10); NRBC Flagged by Analyzer 0.4 % (0-5); Neutrophil # 12.09 X10^3/uL (2.7-7.7); Neutrophil % 81.9 % (47-70); POSITIVE MORPHOLOGY YES; Platelet Count 139 K/mm3 (150-450); RBC Distribution Width CV 24.1 % (11.6-14.6); RBC Distribution Width SD 59.5 fl (35.1-43.9); Red Blood Count 4.05 M/mm3 (4.2-5.4); White Blood Count 14.8 K/mm3 (4.4-11.0)
[2021-05-06 05:37] LABS: Differential Indicated SCAN CRITERIA MET
[2021-05-06 05:57] LABS: Anion Gap 7 (5-15); BUN 12 mg/dL (7-18); BUN/Creat Ratio 17.6 RATIO (10-20); Calcium,Total 7.8 mg/dL (8.5-10.1); Chloride 110 mmol/L (98-107); Creatinine, Serum 0.68 mg/dL (0.55-1.02); EST Glomerular Filtration Rate 102 mL/min (>60); Est Glom Filt Rate - Afr Amer 124 mL/min (>60); Estimated Creatinine Clearance 125.38 ml/min; Glucose 92 mg/dL (74-106); Potassium 3.5 mmol/L (3.5-5.1); Sodium Level 139 mmol/L (136-145)
[2021-05-06 06:05] LABS: Anisocytosis 2+; Differential Comment SCANNED
[2021-05-06 06:06] LABS: Microcytosis 2+
[2021-05-06] MEDS: 0.9% Normal Saline 1,000 ML 100 ML IV ×2 (07:16→18:30)
--- NOTE | 2021-05-06 07:17 | CON.PCM.UR_ITS ---
Assessment & Plan Assessment/Plan (1) Neutrophilic leukocytosis: (2) Anemia: QUALIFIERS: Anemia type: iron deficiency Iron deficiency anemia type: unspecified iron deficiency Qualified Code(s): D50.9 - Iron deficiency anemia, unspecified (3) Left nephrolithiasis: HPI Consult Data Date of Consult: 05/06/21 HPI Narrative HPI Narrative: TRENTON BESS, is a 36 F who presents with very high WBC and anemia, hematology consulted, has stone, plan for surgery tomorrow with laser and stent removal. npo at midnight, get consent [facility] Medical History (Updated 05/05/21 @ 12:[address] Evaristo Morocho MD) Anxiety Cholecystectomy planned GERD (gastroesophageal reflux disease) Hypothyroidism Home Medications cyanocobalamin (vitamin B-12) 1,000 mcg PO DAILY 05/03/21 [History Last Taken 05/02/21] levothyroxine 175 mcg PO DAILY 05/03/21 [History Last Taken 05/02/21] pantoprazole 40 mg PO DAILY 05/03/21 [History Last Taken 05/02/21] paroxetine HCl 40 mg PO DAILY 05/03/21 [History Last Taken 05/02/21] Allergy/AdvReac Type Severity Reaction Status Date / Time Sulfa (Sulfonamide Allergy Hives Verified 05/03/21 16:50 Antibiotics) Family History Mother Hypothyroidism Hypertension Surgical History History of cholecystectomy History of pancreatic surgery Previous back surgery Previous section Social History (Updated 05/03/21 @ 16:31 by Alessandro NEGRON) household members: spouse and children housing: house Smoking Status: Current every day smoker tobacco type: cigarettes Smoking packs per day: 0.5 Smoking cigarettes per day: 10.0 Years smoked: 10 Smoking pack- years: 5.00 Tobacco: How many years used: 10 quit status: considering quitting alcohol intake: never substance use type: does not use do you feel safe at home: Yes ROS Constitutional Constitutional: Denies chills, fever(s) or malaise Eyes Eyes: Denies blurry vision or change in vision ENT HEENT: Reports none Cardiovascular Cardiovascular: Denies chest pain or palpitations Respiratory/Chest Respiratory/Chest: Denies cough or shortness of breath with exertion Gastrointestinal Gastrointestinal: Denies abdominal pain, constipation or diarrhea Musculoskeletal Musculoskeletal: Denies back pain, joint stiffness or joint swelling Integumentary Integumentary: Denies dry skin, jaundice, lesions or rash Neurologic Neurologic: Denies confusion, syncope or weakness Psychiatric Psychiatric: Reports none; Denies anxiety or depression Endocrine Endocrinology: Denies excessive sweating, fatigue or flushing Hematologic/Lymphatic Hematologic/Lymphatic: Denies anemia, easy bleeding or easy bruising Physical Exam Const alert and oriented x3 General Appearance: cooperative HEENT normocephalic, head/scalp atraumatic, EAC's normal and TM's normal bilaterally Eyes PERRL and EOMs intact bilaterally Pupil: sluggish Neck no lymphadenopathy, supple and no JVD General: trachea midline Lymph Lymphatic: no lymphadenopathy noted, lymphedema and lymphadenopathy Resp normal respiratory effort, normal air movement and clear to auscultation bilaterally Cardio regular rate, regular rhythm and peripheral pulses 2+ throughout GI soft to palpation, non-tender and non-distended Extremity normal capillary refill and no clubbing, cyanosis or edema General Extremity: no tenderness to palpation of joints or extremities Skin no rashes or lesions noted General Skin Exam: turgor normal Lesions: no lesions Rashes: no rashes Neuro CN's II-XII intact bilaterally Speech: speech normal Motor Exam: strength 5/5 throughout; Negative for general weakness Psych thought process normal, cooperative and affect normal Appearance: appropriate Lab / Micro Data Result Diagrams: 05/06/21 05:00 05/06/21 05:00 Labs: Laboratory Results - last 24 hr 05/05/21 06:27: Magnesium 2.5 05/05/21 06:27: TSH 14.00 H 05/05/21 06:27: Free T4 1.03, Free T3 pg/dL 1.0 L 05/06/21 05:00: WBC 14.8 H, RBC 4.05 L, Hgb 7.8 L, Hct 28.2 L, MCV 69.6 L, MCH 19.3 L, MCHC 27.7 L, RDW Std Deviation 59.5 H, RDW Coeff of Eulalio 24.1 H, Plt Count 139 L, MPV Not Reportable, Immature Gran % (Auto) 1.000 H, Neut % (Auto) 81.9 H, Lymph % (Auto) 11.0 L, [place] % (Auto) 5.1, Eos % (Auto) 0.7, Baso % (Auto) 0.3, Absolute Neuts (auto) 12.1 H, Absolute Lymphs (auto) 1.62, Nucleated RBC % 0.4, Differential Comment SCANNED, Anisocytosis 2+, Microcytosis 2+ 05/06/21 05:00: Sodium 139, Potassium 3.5, Chloride 110 H, Carbon Dioxide 22.0, Anion Gap 7, BUN 12, Creatinine 0.68, Estim Creat Clear Calc 125.38, Est GFR (MDRD) Af Amer 124, Est GFR (MDRD) Non-Af 102, BUN/Creatinine Ratio 17.6, Glucose 92, Calcium 7.8 L Micro: Microbiology 05/03/21 16:50 Urine, Clean Catch Urine Culture - Final Mixed Gram Positive Organisms Radiology Impression KUB X-Ray 05/05/21 09:40 IMPRESSION: Left ureteral stent. 4 mm in diameter calcification projected over the upper pole of the left kidney. No acute finding. Electronically Signed: Dickson Montanez MD at 11:43 EDT , Service support ,
[2021-05-06] MEDS: Potassium Chloride Oral Tablet 20 MEQ 40 MEQ PO (09:29)
[2021-05-06] MEDS: Pantoprazole Sodium 40 MG Tablet PO (09:30)
[2021-05-06] MEDS: Paroxetine 20 MG Tablet 40 MG PO (09:30)
[2021-05-06] MEDS: Cyanocobalamin 500 MCG Tablet 1000 MCG PO (09:31)
[2021-05-06] MEDS: Morphine 2 MG/ML Syringe IV ×3 (09:50→22:09)
--- NOTE | 2021-05-06 10:48 | PCM.PN.HOSP ---
Documented by User: Alessandro NEGRON 05/06/21 11:03 Subjective Subjective Patient is a 36-year-old female comfortably resting in bed, alert and orient x3. Patient denies development of any new symptoms in the past 24 hours. Denies chest pain, shortness of breath, palpitations, hemoptysis, sputum production, fever, chills, N/V/D. Objective Data Objective Data Vital Signs: Vital Signs Temp Pulse Resp BP Pulse Ox 97.9 F 55 L 18 160/94 H 99 05/06/21 08:45 05/06/21 09:46 05/06/21 08:45 05/06/21 08:45 05/06/21 08:45 Oxygen Flow Rate (L/min) 2 Oxygen Delivery Method Room Air Weight: 213 lb 6.519 oz Body Mass Index (BMI) 29.3 Intake & Output: Intake and Output for Last 24 Hours 05/04/21 05/05/21 05/06/21 23:59 23:59 23:59 Intake Total 2250.25 / 2490.25 3938.34 / 3938.34 1310 / 1310 Output Total 850 / 850 250 / 250 Balance 2250.25 / 2140.25 3088.34 / 3088.34 1060 / 1060 Lab / Micro Data Result Diagrams: 05/06/21 05:00 05/06/21 05:00 Labs: Laboratory Results - last 24 hr 05/05/21 06:27: TSH 14.00 H 05/05/21 06:27: Free T4 1.03, Free T3 pg/dL 1.0 L 05/06/21 05:00: WBC 14.8 H, RBC 4.05 L, Hgb 7.8 L, Hct 28.2 L, MCV 69.6 L, MCH 19.3 L, MCHC 27.7 L, RDW Std Deviation 59.5 H, RDW Coeff of Eulalio 24.1 H, Plt Count 139 L, MPV Not Reportable, Immature Gran % (Auto) 1.000 H, Neut % (Auto) 81.9 H, Lymph % (Auto) 11.0 L, Gregory % (Auto) 5.1, Eos % (Auto) 0.7, Baso % (Auto) 0.3, Absolute Neuts (auto) 12.1 H, Absolute Lymphs (auto) 1.62, Nucleated RBC % 0.4, Differential Comment SCANNED, Anisocytosis 2+, Microcytosis 2+ 05/06/21 05:00: Sodium 139, Potassium 3.5, Chloride 110 H, Carbon Dioxide 22.0, Anion Gap 7, BUN 12, Creatinine 0.68, Estim Creat Clear Calc 125.38, Est GFR (MDRD) Af Amer 124, Est GFR (MDRD) Non-Af 102, BUN/Creatinine Ratio 17.6, Glucose 92, Calcium 7.8 L Micro: Microbiology 05/04/21 10:37 Urine, Cystoscopy Urine Culture - Final Culture exhibits no growth. 05/06/21 07:40 Stool Stool Occult Blood (DIGNA) - Final 05/03/21 16:50 Urine, Clean Catch Urine Culture - Final Mixed Gram Positive Organisms 05/04/21 09:50 Nasal Secretion SARS-CoV-2 Antigen (Rapid) - Final Radiography Diagnostic Testing: Radiology Impression KUB X-Ray 05/05/21 09:40 IMPRESSION: Left ureteral stent. 4 mm in diameter calcification projected over the upper pole of the left kidney. No acute finding. Electronically Signed: Dickson Montanez MD at 11:43 EDT , Service support , Physical Exam Const alert, oriented x3 and no apparent distress HEENT head/scalp atraumatic and moist oral mucous membranes Head and Scalp: normocephalic Eyes PERRL, EOMs intact bilaterally and conjunctivae normal Neck no lymphadenopathy, supple and no JVD Resp normal respiratory effort, no retractions, no use of accessory muscles and clear to auscultation bilaterally Cardio no murmurs and no JVD Rate: bradycardia Rhythm: regular rhythm GI normal to inspection, nondistended, normoactive bowel sounds, soft to palpation and non-tender Extremity normal to inspection, full ROM and no clubbing, cyanosis or edema Skin no rashes or lesions noted, no wounds, skin turgor normal and no jaundice Neuro CN's II-XII intact bilaterally Psych affect normal Assessment & Plan Assessment/Plan (1) Left nephrolithiasis: (2) Anemia: QUALIFIERS: Anemia type: iron deficiency Iron deficiency anemia type: unspecified iron deficiency Qualified Code(s): D50.9 - Iron deficiency anemia, unspecified (3) Neutrophilic leukocytosis: PLAN: Day 3 Discharge planning: Patient to discharge home, no home health care needs or additional therapies identified. 1) Infected obstructive left nephrolithiasis Urology consulted, additional surgery with brianna and stent removal to be performed on 05/07/2021. Initial cystoscopy left retrograde pyelogram performed on 05/04/[address] Cid. Vital signs stable and patient is afebrile. WBC still elevated at 14,000, however are responding to abx. Plan; remain admitted to PCU for telemetry monitoring, continue zosyn, morphine as needed, Zofran as needed, Tylenol as needed, melatonin as needed, Toradol as needed, Compazine as needed, CBC in a.m. 2) Microcytic anemia, iron deficiency Stable at 7.8, was 6.8 on admission. Total iron 10, TIBC high end of normal. Consistent with iron deficiency. Has received 2 units PRBC's + IV iron x3 doses. Occult stool negative. Plan; continue p.o. iron supplementation, trend CBC, will need p.o. supplementation on discharge. 3) Leukocytosis with left shift Hematology oncology consulted, recommend outpatient follow-up with Dr. Morocho for further evaluation for myeloproliferative disease/CML. 4) hypothyroidism Elevated TSH, with normal T4. Continue Synthroid. 5) anxiety/depression Continue Paxil. 6) hypokalemia Replaced, currently 3.5. Continue to monitor BMP. DVT prophylaxis -low risk, not indicated Patient seen by Alessandro Gil PA-C, under the supervision of Dr. Giles. Documented by User: Dr. Saloni Giles MD 05/06/21 16:40 Objective Data Lab / Micro Data Result Diagrams: 05/06/21 05:00 05/06/21 05:00 Charges/Coding Addendum Addendum: Patient seen by Alessandro Gil PA-C under my supervision Patient seen and examined. She had no complaints this morning and felt well. Review of systems otherwise negative. She has remained hemodynamically stable O/E: Const alert, oriented x3 and no apparent distress Orientation / Consciousness: awake, oriented to person, oriented to place and oriented to time HEENT normocephalic and moist oral mucous membranes Eyes PERRL, EOMs intact bilaterally and conjunctivae normal Neck no lymphadenopathy Resp normal respiratory effort and clear to auscultation bilaterally Cardio regular rate, regular rhythm and no murmurs Peripheral Pulses: pulses 2+ throughout GI normal to inspection, nondistended, normoactive bowel sounds, non-tender and non-distended Extremity normal to inspection Skin no rashes or lesions noted Lesions: no lesions Rashes: no rashes Trauma: no lacerations or abrasions Neuro CN's II-XII intact bilaterally, no focal motor deficits, no sensory deficits noted and deep tendon reflexes 2+ bilaterally Psych mental status grossly normal and affect normal Patient had a left kidney stent placed after she had cystoscopy with left retrograde pyelogram. To have lithotripsy tomorrow. Continue on IV zosyn. WBC has trended down to 14.8 today. She is also noted to have a microcytic anemia with low ferritin and is thought to be due to iron deficiency anemia for thalassemia. Follow-up with oncology on outpatient basis. She is s/p transfusion of 2 units of packed red blood cells. Hypokalemia has resolved. SCDs for DVT prophylaxis. Rest as per Alessandro Gil PA-C's note, which I have reviewed and endorsed. Visit Charges Inpatient E&M: 64435 Subs Hosp L2
--- NOTE | 2021-05-06 11:30 | CASEMGMT ---
ELIZABETH ALMANZAR assessment: Face to Face with patient for initial transition planning/care coordination assessment. ELIZABETH ALMANZAR introduced self and role at [facility], pt voices understanding and consents to assessment. Pt is sitting up in bed in no distress on room air. Pt is A/Ox4 and answers all questions appropriately. Care providers, pharmacy, and demographics verified/updated. Presentation: Pt was direct admit from [facility] for infected kidney stones Admitting dx: Kidney stone PCP: Pt requests list of local PCP's and list provided to pt. Specialists: Jose Roberto, uro; Prah, heme-plans to f/u with both after discharge. Preferred Pharmacy: [facility] Insurance: [email or web address] Prescription Benefit: CRS Living Will/HPOA: Pt states does not have LW/HPOA but requests AD info. AD info provided to pt. Pt declines to complete AD's at this time. LNOK: Geoffrey Villasenor, sig other Living Arrangements: Pt lives with sig other and 4 kids in 2 story home and states no concerns at home. Pt states is independent with ADL's. Transportation: Pt states drives self and states no transportation concerns. DME/HHC: Pt states no current DME or need for any DME. Pt states no hx of HHC or SNF. Pt states no concerns with going home at time of discharge. 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 Pt states smokes 1/2pk cigarettes daily but does not drink ETOH. Pt states no further concerns/needs. CM to follow for any further discharge planning/needs. Advised pt to ask for CM if any further questions/concerns/needs arise, voices understanding. Pt Goal: Home Plan: [place] ELIZABETH ALMANZAR
[2021-05-06 16:09] LABS: Pathologist Review Reviewed
[2021-05-06 16:14] LABS: Pathologist Review Reviewed
[2021-05-06] MEDS: Ferrous Sulfate 325 MG Tablet PO (20:22)
[2021-05-06] MEDS: 0.9% Saline Lock 10 ML Syringe IV (22:10)
[2021-05-07] VITALS (15 sets, daily range): BP systolic 112–185; BP diastolic 78–99; PULSE 53–66; RESP 16–18; TEMP 36.1–36.9; O2SAT 92–96; BMI 29.3
[2021-05-07] MEDS: 0.9% Normal Saline 1,000 ML 100 ML IV (03:20)
[2021-05-07] MEDS: Morphine 2 MG/ML Syringe IV ×2 (03:32→06:57)
[2021-05-07 06:23] LABS: Absolute Neutrophil Count 8.4 X10^3/uL (2.0-7.7); Basophil# 0.08 X10^3/uL; Basophil% 0.7 % (0-1); Eosinophil# 0.15 X10^3/uL; Eosinophils% 1.3 % (0-5); Hematocrit 27.1 % (37-47); Hemoglobin 7.4 g/dL (12.0-15.0); Lymphocyte % 16.6 % (19-41); Mean Corp Hgb Conc 27.3 g/dL (32-36); Mean Corpuscular Hgb 18.9 pg (27.0-32.0); Mean Corpuscular Volume 69.3 fL (81-99); Monocyte# 0.71 X10^3/uL; Monocyte% 6.2 % (0-10); NRBC Flagged by Analyzer 1.2 % (0-5); Neutrophil # 8.35 X10^3/uL (2.7-7.7); Neutrophil % 72.9 % (47-70); POSITIVE MORPHOLOGY YES; Platelet Count 137 K/mm3 (150-450); RBC Distribution Width CV 25.1 % (11.6-14.6); Red Blood Count 3.91 M/mm3 (4.2-5.4); White Blood Count 11.5 K/mm3 (4.4-11.0)
[2021-05-07 06:35] LABS: International Normalized Ratio 1.2; Prothrombin Time (Protime)PT. 14.2 SECONDS (11.7-14.9)
[2021-05-07 06:40] LABS: Differential Indicated SCAN CRITERIA MET
[2021-05-07 06:46] LABS: Partial Thromboplast Time 36.4 Seconds (24.1-36.2)
[2021-05-07 06:55] LABS: Anion Gap 7 (5-15); BUN 7 mg/dL (7-18); BUN/Creat Ratio 10.8 RATIO (10-20); Calcium,Total 7.9 mg/dL (8.5-10.1); Chloride 111 mmol/L (98-107); Creatinine, Serum 0.65 mg/dL (0.55-1.02); EST Glomerular Filtration Rate 109 mL/min (>60); Est Glom Filt Rate - Afr Amer 132 mL/min (>60); Estimated Creatinine Clearance 131.16 ml/min; Glucose 91 mg/dL (74-106); Potassium 3.4 mmol/L (3.5-5.1); Sodium Level 139 mmol/L (136-145)
[2021-05-07] MEDS: Levothyroxine 175 MCG Tablet PO (06:57)
[2021-05-07] MEDS: 0.9% Saline Lock 10 ML Syringe IV (06:58)
[2021-05-07 07:54] LABS: Anisocytosis 1+
[2021-05-07 08:25] LABS: Internal QC Validated? YES +Cl - CLEAR BKGD; Pregnancy, Urine Negative Negative
--- NOTE | 2021-05-07 09:55 | SUR.PREOP ---
This nurse called [facility]; they are preparing 1 unit PRBC. Will be another 34 minutes before it is ready to transfuse. Patient is taken to the OR at this time. MARTINA Burgos updated on blood status.
--- NOTE | 2021-05-07 10:18 | OP.PCM_ITS ---
Report of Operation Date of Procedure: 05/07/21 Pre-Operative Diagnosis: Left obstructing kidney stone status post stent Post-Operative Diagnosis: The same Surgery/Procedure Performed:: Left ureteroscopy laser lithotripsy of stone and removal of stent left retrograde pyelogram interpretation fluoroscopic images Description of Surgical Findings:: 36-year-old female was taken back to the operating room, she underwent a stent placement earlier this week for an infection she had a white count of 34,000 and an obstructing stone. Since then she has been treated with antibiotics her white count is normalized she was found to have anemia and other medical problem, but i plan proceed with laser lithotripsy of the stone and hopefully removal of the stent. Patient was taken back to the operating room after smooth induction of general anesthesia she was placed in dorsolithotomy position, the urethra vaginal area were prepped and draped in usual sterile fashion, there was a string on the stent a great easily pulled the string and extract the distal end of the stent and then through the distal to stent I put a wire up into the left kidney, then over the wire we went in with an 8 Georgian flexible Olympus ureteroscope was able to get up to the kidney quite easily I inspected the upper pole midpole lower pole there is no stones fragments visible there work my way down the ureter and on the way down the ureter I encountered the stone fragment I then used a 270 ?m laser fiber and started lasering the stone and as I lasered the stone I worked my way down the ureter the stones broke up and they will pass into the bladder without any problems. I then went back into the ureter and inspected the ureter and the kidney all the way up to the kidneys performed a retrograde pyelogram there was no other visible stones no other blockages no strictures or problems along the ureter so worked my way down the ureter again the ureter was completely clear and because of this I did not leave a stent I drained the patient's bladder anesthetic is reversed and she was taken to the PACU in stable condition she needs a follow-up in my office in about 6 weeks for checkup she does not have a stent. Surgeon: elizabeth Type of Anesthesia: General Drains: no stent Admit VTE Documentation VTE Present on Admission: No VTE Mechan Device Prophylaxis: SCD's
--- NOTE | 2021-05-07 10:18 | PCM.DC ---
Discharge Instructions Diet Discharge Diet: No restrictions Activity Discharge Activity: Return to Normal Activity and May Not Drive (while taking narcotic pain medications.) Dressing / Incision Call your doctor if you observe: Fever of 101 or Higher Follow Up Care Please Follow Up With: Logan Cid MD When: Call [phone] for an appointment Test Results: Test results from this visit will be discussed in further detail at your follow-up appointment, if applicable. Discharge Plan Admission Admit Date/Time: 05/03/21 15:57 Attending Provider: Saloni Giles Consulting Providers: Logan Cid ; Carl Cox ; Evaristo Morocho ; Baljeet Verdugo ; Edgardo Chase ; Gentry Desai ; Isma Dsouza ; Sachin Hi ; Dena Nation [facility] Discharge Orders/Prescriptions Prescriptions: No Action levothyroxine 175 mcg tablet 175 mcg PO DAILY RF: 0 cyanocobalamin (vitamin B-12) 1,000 mcg tablet 1,000 mcg PO DAILY RF: 0 pantoprazole 40 mg Tablet,Delayed Release (Dr/Ec) 40 mg PO DAILY RF: 0 paroxetine HCl 40 mg Tablet 40 mg PO DAILY RF: 0
[2021-05-07] MEDS: Potassium Chloride Oral Tablet 20 MEQ 40 MEQ PO (11:49)
[2021-05-07] MEDS: Pantoprazole Sodium 40 MG Tablet PO (11:50)
[2021-05-07] MEDS: Cyanocobalamin 500 MCG Tablet 1000 MCG PO (11:50)
[2021-05-07] MEDS: Paroxetine 20 MG Tablet 40 MG PO (11:50)
--- NOTE | 2021-05-07 14:32 | PCM.PN.HOSP ---
Documented by User: Alessandro NEGRON 05/07/21 14:42 Subjective Subjective Patient is a 36-year-old female comfortably resting in bed, alert and oriented x3. Patient reports no complaints after lithotripsy, denies development of any new symptoms overnight. Denies chest pain, shortness of breath, palpitations, hemoptysis, sputum production, fever, chills, N/V/D. Objective Data Objective Data Vital Signs: Vital Signs Temp Pulse Resp BP Pulse Ox 97.5 F L 53 L 18 185/97 H 95 05/07/21 12:45 05/07/21 12:45 05/07/21 12:45 05/07/21 12:45 05/07/21 12:45 Oxygen Flow Rate (L/min) 2 Oxygen Delivery Method Room Air Weight: 213 lb 6.519 oz Body Mass Index (BMI) 29.3 Intake & Output: Intake and Output for Last 24 Hours 05/05/21 05/06/21 05/07/21 23:59 23:59 23:59 Intake Total 3938.34 / 3938.34 2740.25 / 3260.25 2759.08 / 2759.08 Output Total 850 / 850 250 / 250 300 / 300 Balance 3088.34 / 3088.34 2490.25 / 3010.25 2459.08 / 2459.08 Lab / Micro Data Result Diagrams: 05/07/21 15:35 05/07/21 05:50 Labs: Laboratory Results - last 24 hr 05/04/21 05:35: Diff Path Review Reviewed 05/04/21 12:30: Diff Path Review Reviewed 05/07/21 05:50: WBC 11.5 H, RBC 3.91 L, Hgb 7.4 L, Hct 27.1 L, MCV 69.3 L, MCH 18.9 L, MCHC 27.3 L, RDW Std Deviation 61.0 H, RDW Coeff of Eulalio 25.1 H, Plt Count 137 L, Immature Gran % (Auto) 2.300 H, Neut % (Auto) 72.9 H, Lymph % (Auto) 16.6 L, [place] % (Auto) 6.2, Eos % (Auto) 1.3, Baso % (Auto) 0.7, Absolute Neuts (auto) 8.4 H, Absolute Lymphs (auto) 1.90, Nucleated RBC % 1.2, Anisocytosis 1+ 05/07/21 05:50: Sodium 139, Potassium 3.4 L, Chloride 111 H, Carbon Dioxide 21.0, Anion Gap 7, BUN 7, Creatinine 0.65, Estim Creat Clear Calc 131.16, Est GFR (MDRD) Af Amer 132, Est GFR (MDRD) Non-Af 109, BUN/Creatinine Ratio 10.8, Glucose 91, Calcium 7.9 L, TSH 20.10 H 05/07/21 05:50: PT 14.2, INR 1.2, APTT 36.4 H 05/07/21 06:16: Urine Test Negative 05/07/21 09:04: Blood Type A NEGATIVE, Antibody Screen NEGATIVE, Crossmatch See Detail Micro: Microbiology 05/04/21 10:37 Urine, Cystoscopy Urine Culture - Final Culture exhibits no growth. 05/06/21 07:40 Stool Stool Occult Blood (DIGNA) - Final 05/03/21 16:50 Urine, Clean Catch Urine Culture - Final Mixed Gram Positive Organisms 05/04/21 09:50 Nasal Secretion SARS-CoV-2 Antigen (Rapid) - Final Physical Exam Const alert, oriented x3 and no apparent distress HEENT head/scalp atraumatic and moist oral mucous membranes Head and Scalp: normocephalic Eyes PERRL, EOMs intact bilaterally and conjunctivae normal Neck no lymphadenopathy, supple and no JVD Resp normal respiratory effort, no retractions, no use of accessory muscles and clear to auscultation bilaterally Cardio no murmurs and no JVD Rate: bradycardia Rhythm: regular rhythm GI normal to inspection, nondistended, normoactive bowel sounds, soft to palpation and non-tender Extremity normal to inspection, full ROM and no clubbing, cyanosis or edema Skin no rashes or lesions noted, no wounds, skin turgor normal and no jaundice Neuro CN's II-XII intact bilaterally Psych affect normal Assessment & Plan Assessment/Plan (1) Anemia: QUALIFIERS: Anemia type: iron deficiency Iron deficiency anemia type: unspecified iron deficiency Qualified Code(s): D50.9 - Iron deficiency anemia, unspecified (2) Left nephrolithiasis: PLAN: Day 4 Discharge planning: Patient to discharge home, case management and social work following. Likely ready for discharge on 05/08 pending any complications from surgery or significant drop in hemoglobin. 1) Infected obstructive left nephrolithiasis Successful left-sided uterus could be laser lithotripsy and stone removal completed 05/07/[address] Cid. No complaints noted. Initial cystoscopy left retrograde pyelogram performed on 05/04/[address] Cid. Vital signs stable and patient is afebrile. WBC still elevated at 14,000, however are responding to abx. Plan; remain admitted to PCU for telemetry monitoring, continue zosyn, morphine as needed, Zofran as needed, Tylenol as needed, melatonin as needed, Toradol as needed, Compazine as needed, follow-up with Dr. Cid in 6 weeks. 2) Microcytic anemia, iron deficiency Hemoglobin dropped again to 7.4 today, was 7.8 on 05/06. Total iron 10, TIBC high end of normal. Consistent with iron deficiency. Has received 2 units PRBC's + IV iron x3 doses. Occult stool negative. Plan; patient to receive additional unit of PRBCs, continue p.o. iron supplementation, trend CBC, will need p.o. supplementation on discharge. 3) Leukocytosis with left shift Hematology oncology consulted, recommend outpatient follow-up with Dr. Morocho for further evaluation for myeloproliferative disease/CML. 4) hypothyroidism Elevated TSH, with normal T4. Continue Synthroid. 5) anxiety/depression Continue Paxil. 6) hypokalemia Replaced, currently 3.4. Continue to monitor BMP, continue p.o. potassium supplementation. DVT prophylaxis -low risk, not indicated Patient seen by Alessandro Gil PA-C, under the supervision of Dr. Giles. Documented by User: Dr. Saloni Giles MD 05/07/21 16:41 Objective Data Lab / Micro Data Result Diagrams: 05/07/21 15:35 05/07/21 05:50
[2021-05-07] MEDS: Acetaminophen 325 MG Tablet 650 MG PO (15:07)
[2021-05-07] MEDS: Ferrous Sulfate 325 MG Tablet PO (15:08)
[2021-05-07 15:54] LABS: Hematocrit 32.3 % (37-47); Hemoglobin 9.1 g/dL (12.0-15.0)
--- NOTE | 2021-05-07 16:00 | PCM.DC ---
Discharge Instructions Diet Discharge Diet: No restrictions Activity Discharge Activity: Return to Normal Activity Weight Bearing Status: Weight bearing as tolerated Dressing / Incision Call your doctor if you observe: Fever of 101 or Higher, Numbness or Tingling, Shortness of breath, Chest pain, Increased palpitations (irregular heartbeat) and Uncontrolled pain Follow Up Care Please Follow Up With: Logan Cid MD When: Within the next two weeks. Test Results: Test results from this visit will be discussed in further detail at your follow-up appointment, if applicable. Discharge Plan Admission Admit Date/Time: 05/03/21 15:57 Primary Reason for Your Visit: Infected left kidney stone Attending Provider: Saloni Giles Consulting Providers: Logan Cid ; Carl Cox ; Evaristo Morocho ; Baljeet Verdugo ; Edgardo Chase ; Gentry Desai ; Isma Dsouza ; Sachin Hi ; Dena Nation [employer] Discharge Orders/Prescriptions Prescriptions: New ciprofloxacin HCl 500 mg tablet 500 mg PO BID Qty: 10 RF: 0 Continued levothyroxine 175 mcg tablet 175 mcg PO DAILY RF: 0 cyanocobalamin (vitamin B-12) 1,000 mcg tablet 1,000 mcg PO DAILY RF: 0 pantoprazole 40 mg Tablet,Delayed Release (Dr/Ec) 40 mg PO DAILY RF: 0 paroxetine HCl 40 mg Tablet 40 mg PO DAILY RF: 0 Referrals / Follow Up: Evaristo Morocho MD [NON-STAFF] - Within 2 Weeks (Follow up with Dr. Morocho for appropriate work up for anemia and possible CML/Myeloprolifrative disease. ) Logan Cid MD [STAFF PHYSICIAN] - See Referral Note (Follow up with Dr. Cid in 6 weeks for evaluation of your Kidney stone. ) Disposition Disposition (needs filled in before D/C Order can be placed): Home, Self Care
--- NOTE | 2021-05-07 16:11 | PCM.DC.SUM ---
Documented by User: Alessandro NEGRON 05/07/21 16:14 Providers Date of Admission: 05/03/21 Consultations 05/03/21 16:06 Consult: Urology Routine Consulting Provider: Logan Cid Reason for Consult: Infected nephrolithiasis EMERGENT Consult: No Notified: Yes Date Notified: 05/03/21 Time Notified: 16:06 Method of Notification: Verbal 05/05/21 08:46 Consult: Oncology/Hematology Routine Consulting Provider: [facility] Reason for Consult: Elevated WBC and anemia EMERGENT Consult: No Notified: Yes Date Notified: 05/05/21 Time Notified: 08:56 Method of Notification: Text Reason For Visit: KIDNEY STONE Diagnosis Discharge Diagnosis (1) Anemia: Status: Acute Code(s): D64.9 - Anemia, unspecified Qualifiers: Anemia type: iron deficiency Iron deficiency anemia type: unspecified iron deficiency Qualified Code(s): D50.9 - Iron deficiency anemia, unspecified (2) Left nephrolithiasis: Status: Acute Code(s): N20.0 - Calculus of kidney Medications at Discharge Home Medications cyanocobalamin (vitamin B-12) 1,000 mcg PO DAILY 05/03/21 levothyroxine 175 mcg PO DAILY 05/03/21 pantoprazole 40 mg PO DAILY 05/03/21 paroxetine HCl 40 mg PO DAILY 05/03/21 ciprofloxacin HCl 500 mg PO BID #10 tab 05/07/21 ferrous sulfate 325 mg PO DAILY #30 tab 05/07/21 Hospital Course Summary of Care Provided Minutes Spent on Discharge: 35 Hospital Course: Disposition: Patient to discharge home with outpatient urology and oncology follow-ups. 1) Infected obstructive left nephrolithiasis Successful left-sided uterus could be laser lithotripsy and stone removal completed 05/07/[address] Cid. No complaints noted. Initial cystoscopy left retrograde pyelogram performed on 05/04/[address] Cid. Vital signs stable and patient is afebrile. WBC still elevated at 14,000, however are responding to abx. Plan; discharge home, ciprofloxacin 500 mg p.o. twice daily x5 days initiated at discharge, follow-up with Dr. Cid in 6 weeks. 2) Microcytic anemia, iron deficiency Hemoglobin dropped again to 7.4 today, was 7.8 on 05/06. Patient transfused 3 units of PRBCs throughout admission. Total iron 10, TIBC high end of normal. Occult stool negative. Plan; patient to follow-up with Dr. Morocho and initiate p.o. iron supplementation. 3) Leukocytosis with left shift Hematology oncology consulted, recommend outpatient follow-up with Dr. Morocho for further evaluation for myeloproliferative disease/CML. 4) hypothyroidism Elevated TSH, with normal T4. Continue Synthroid. 5) anxiety/depression Continue Paxil. 6) hypokalemia Replaced. Patient seen by Alessandro Gil PA-C, under the supervision of Dr. Giles. Physical Exam Narrative Patient is a 36-year-old female comfortably resting in bed, alert and oriented x3. Patient reports no complaints after lithotripsy, denies development of any new symptoms overnight. Denies chest pain, shortness of breath, palpitations, hemoptysis, sputum production, fever, chills, N/V/D. Const alert, oriented x3 and no apparent distress HEENT normocephalic, head/scalp atraumatic and hearing grossly normal bilaterally Eyes PERRL, EOMs intact bilaterally and conjunctivae normal Neck no lymphadenopathy, supple and no JVD Resp normal respiratory effort, no retractions, no use of accessory muscles and clear to auscultation bilaterally Cardio regular rate, regular rhythm, no murmurs and no JVD GI normal to inspection, nondistended, normoactive bowel sounds, soft to palpation and non-tender Extremity normal to inspection, full ROM and no clubbing, cyanosis or edema Skin no rashes or lesions noted, no wounds and skin turgor normal Neuro CN's II-XII intact bilaterally Psych affect normal Weight / BMI Weight Weight: 213 lb 6.519 oz Body Mass Index (BMI) 29.3 ABG / Lab / Microbiology Data Result Diagrams: 05/07/21 15:35 05/07/21 05:50 Laboratory: Laboratory Results - last 24 hr 05/04/21 12:30: Diff Path Review Reviewed 05/07/21 05:50: WBC 11.5 H, RBC 3.91 L, Hgb 7.4 L, Hct 27.1 L, MCV 69.3 L, MCH 18.9 L, MCHC 27.3 L, RDW Std Deviation 61.0 H, RDW Coeff of Eulalio 25.1 H, Plt Count 137 L, Immature Gran % (Auto) 2.300 H, Neut % (Auto) 72.9 H, Lymph % (Auto) 16.6 L, [place] % (Auto) 6.2, Eos % (Auto) 1.3, Baso % (Auto) 0.7, Absolute Neuts (auto) 8.4 H, Absolute Lymphs (auto) 1.90, Nucleated RBC % 1.2, Anisocytosis 1+ 05/07/21 05:50: Sodium 139, Potassium 3.4 L, Chloride 111 H, Carbon Dioxide 21.0, Anion Gap 7, BUN 7, Creatinine 0.65, Estim Creat Clear Calc 131.16, Est GFR (MDRD) Af Amer 132, Est GFR (MDRD) Non-Af 109, BUN/Creatinine Ratio 10.8, Glucose 91, Calcium 7.9 L, TSH 20.10 H 05/07/21 05:50: PT 14.2, INR 1.2, APTT 36.4 H 05/07/21 06:16: Urine Test Negative 05/07/21 09:04: Blood Type A NEGATIVE, Antibody Screen NEGATIVE, Crossmatch See Detail 05/07/21 15:35: Hgb 9.1 L, Hct 32.3 L Microbiology: Microbiology 05/04/21 10:37 Urine, Cystoscopy Urine Culture - Final Culture exhibits no growth. 05/06/21 07:40 Stool Stool Occult Blood (DIGNA) - Final 05/03/21 16:50 Urine, Clean Catch Urine Culture - Final Mixed Gram Positive Organisms 05/04/21 09:50 Nasal Secretion SARS-CoV-2 Antigen (Rapid) - Final D/C Instructions Discharge Diet: No restrictions Weight Bearing Status: Weight bearing as tolerated Call your doctor if you observe: Fever of 101 or Higher, Numbness or Tingling, Shortness of breath, Chest pain, Increased palpitations (irregular heartbeat) and Uncontrolled pain Please Follow Up With: Logan Cid MD When: Within the next two weeks. Meaningful Use Info Meaningful Use Diagnoses (Choose all that apply): None applicable Discharge Plan Admission Admit Date/Time: 05/03/21 15:57 Primary Reason for Your Visit: Infected left kidney stone Attending Provider: Saloni Giles Consulting Providers: Logan Cid ; Carl Cox ; Evaristo Morocho ; Baljeet Verdugo ; Edgardo Chase ; Gentry Desai ; Isma Dsouza ; Sachin Hi ; Dena Nation NP Discharge Orders/Prescriptions Prescriptions: New ciprofloxacin HCl 500 mg tablet 500 mg PO BID Qty: 10 RF: 0 ferrous sulfate 325 mg (65 mg iron) tablet 325 mg PO DAILY Qty: 30 RF: 0 Continued levothyroxine 175 mcg tablet 175 mcg PO DAILY RF: 0 cyanocobalamin (vitamin B-12) 1,000 mcg tablet 1,000 mcg PO DAILY RF: 0 pantoprazole 40 mg Tablet,Delayed Release (Dr/Ec) 40 mg PO DAILY RF: 0 paroxetine HCl 40 mg Tablet 40 mg PO DAILY RF: 0 Referrals / Follow Up: Evaristo Morocho MD [NON-STAFF] - Within 2 Weeks (Follow up with Dr. Morocho for appropriate work up for anemia and possible CML/Myeloprolifrative disease. ) Logan Cid MD [STAFF PHYSICIAN] - See Referral Note (Follow up with Dr. Cid in 6 weeks for evaluation of your Kidney stone. ) Disposition Disposition (needs filled in before D/C Order can be placed): Home, Self Care Documented by User: Dr. Saloni Giles MD 05/07/21 16:41 Providers Date of Admission: 05/03/21 Reason For Visit: KIDNEY STONE Medications at Discharge Home Medications cyanocobalamin (vitamin B-12) 1,000 mcg PO DAILY 05/03/21 levothyroxine 175 mcg PO DAILY 05/03/21 pantoprazole 40 mg PO DAILY 05/03/21 paroxetine HCl 40 mg PO DAILY 05/03/21 ciprofloxacin HCl 500 mg PO BID #10 tab 05/07/21 ferrous sulfate 325 mg PO DAILY #30 tab 05/07/21 ABG / Lab / Microbiology Data Result Diagrams: 05/07/21 15:35 05/07/21 05:50 Discharge Plan Admission Admit Date/Time: 05/03/21 15:57 Primary Reason for Your Visit: Infected left kidney stone Attending Provider: Saloni Giles Consulting Providers: Logan Cid ; Carl Cox ; Evaristo Morocho ; Baljeet Verdugo ; Edgardo Chase ; Gentry Desai ; Isma Dsouza ; Sachin Hi ; Dena Nation HVAC ENGINEERING TECHNICIAN Discharge Orders/Prescriptions Prescriptions: New ciprofloxacin HCl 500 mg tablet 500 mg PO BID Qty: 10 RF: 0 ferrous sulfate 325 mg (65 mg iron) tablet 325 mg PO DAILY Qty: 30 RF: 0 Continued levothyroxine 175 mcg tablet 175 mcg PO DAILY RF: 0 cyanocobalamin (vitamin B-12) 1,000 mcg tablet 1,000 mcg PO DAILY RF: 0 pantoprazole 40 mg Tablet,Delayed Release (Dr/Ec) 40 mg PO DAILY RF: 0 paroxetine HCl 40 mg Tablet 40 mg PO DAILY RF: 0 Referrals / Follow Up: Evaristo Morocho MD [NON-STAFF] - Within 2 Weeks (Follow up with Dr. Morocho for appropriate work up for anemia and possible CML/Myeloprolifrative disease. ) Logan Cid MD [STAFF PHYSICIAN] - See Referral Note (Follow up with Dr. Cid in 6 weeks for evaluation of your Kidney stone. ) Disposition Disposition (needs filled in before D/C Order can be placed): Home, Self Care Charges/Coding Addendum Addendum: Patient seen by Alessandro Gil PA-C under my supervision Patient is a 36-year-old female who was admitted as a direct admit from [facility] emergency department on account of a left infected kidney stone. Patient was started having excruciating left-sided flank pain on the day of admission and rated it at about a 10. She also had associated nausea and vomiting and denied any fever, chills, hematuria or pain with urination. Review of symptoms otherwise negative. She had not had any such kidney stones before in the past. Imaging showed a 1.1 cm kidney stone at the left ureteropelvic junction. WBC was also elevated at 30,000. She was started on IV Rocephin. Urine cultures were obtained. Hemoglobin on admission was 6.8. She was transfused with 1 unit of packed red blood cells. Hematology was also consulted on account of anemia with elevated white cell count. Urology was also consulted and she had a stent placed and subsequently had lithotripsy. Per hematology, anemia was a microcytic anemia and iron panel showed low ferritin so this could be an iron deficiency anemia versus thalassemia. Since she had had transfusion done, she could have genetic studies to check for thalassemia and so per hematology, she was to follow-up on outpatient basis. Patient's white cell count trended down significantly to 11.5. On day of discharge, hemoglobin had dropped to 7.4 and she was transfused with 1 unit of packed red blood cell. Stool for occult blood done was negative. Patient had lithotripsy done on 05/07/2021 and tolerated procedure well. She remained stable and was discharged home on 05/07/2021. She was discharged on a course of p.o. ciprofloxacin for 1 week and also discharged on oral iron supplements. She is follow-up with her primary care doctor and urology in 1 to 2 weeks. Patient seen and examined prior to discharge. She had no complaints and felt well. Review of systems otherwise negative. Labs and vitals reviewed. Home medication reviewed and reconciled. Of note she is also follow-up with hematology on outpatient basis. O/E: Const alert, oriented x3 and no apparent distress Orientation / Consciousness: awake, oriented to person, oriented to place and oriented to time HEENT normocephalic and moist oral mucous membranes Eyes PERRL, EOMs intact bilaterally and conjunctivae normal Neck no lymphadenopathy Resp normal respiratory effort and clear to auscultation bilaterally Cardio regular rate, regular rhythm and no murmurs Peripheral Pulses: pulses 2+ throughout GI normal to inspection, nondistended, normoactive bowel sounds, non-tender and non-distended Extremity normal to inspection Skin no rashes or lesions noted Lesions: no lesions Rashes: no rashes Trauma: no lacerations or abrasions Neuro CN's II-XII intact bilaterally, no focal motor deficits, no sensory deficits noted and deep tendon reflexes 2+ bilaterally Psych mental status grossly normal and affect normal Plan is for discharge home today as above. Enter enter rest as per Alessandro Gil PA-C's notes which I have reviewed and endorsed. Visit Charges Inpatient E&M: 10443 Disch Hosp
== END 2021-05-07 16:42 | disposition home or self-care (01) | DRG 446 ==
PROVIDERS: Anesthesiology; Family Medicine; Nurse Practitioner Family; Physician Assistant; Urology; Visit Provider Student in an Organized Health Care Education/Training Program
PROC: 0TJ98ZZ Inspection of Ureter, Via Natural or Artificial Opening Endoscopic (ICD-10-PCS; CPT 52352; principal; 2021-05-04 10:30)
DX: N13.6 Pyonephrosis (principal); K21.9 Gastro-esophageal reflux disease without esophagitis; E03.9 Hypothyroidism, unspecified; F17.210 Nicotine dependence, cigarettes, uncomplicated; D50.9 Iron deficiency anemia, unspecified; F41.9 Anxiety disorder, unspecified; F32.9 Major depressive disorder, single episode, unspecified; E87.6 Hypokalemia; Z79.899 Other long term (current) drug therapy
CPT/HCPCS: 36415; 74018; 76000; 80048; 81001; 81025; 82274; 82728; 83540; 83550; 83735; 84100; 84439; 84443; 84481; 85014; 85018; 85025; 85027; 85610; 85730; 86850; 86900; 86901; 86920; 86922; 87086; 87088; 87426; 99406; J7030; J7040; J7050; P9016; A4216; C1769; C2617; J2405; J2916